=== PATIENT | male | born 1990 | race Caucasian/White ===

== ENCOUNTER 2017-07-10 22:55 | Emergency (ER) | payer BC, MEDICAID ==
[2017-07-11] MEDS ORDERED: AMOXIL 500 MG PO ONE (01:00)
[2017-07-11] MEDS ORDERED: TORAdol 30 mg Injection IM ONE (01:00)
[2017-07-11] MEDS ORDERED: TORAdol 30 mg Injection ONE (01:14)
[2017-07-11] MEDS ORDERED: AMOXIL 500 MG ONE (01:14)
[2017-07-11 01:26] LABS: Appearance CLEAR (CLEAR); Bilirubin NEGATIVE (NEGATIVE); Blood TRACE NON-HEM Ery/ul (0-5); Epithelial Cells FEW /HPF (FEW); Glucose NEGATIVE (NEGATIVE); Ketones NEGATIVE (NEGATIVE); Leukocyte Esterase NEGATIVE (NEGATIVE); Nitrite NEGATIVE (NEGATIVE); Protein,Urine Dip NEGATIVE (Negative); Urobilinogen NORMAL mg/dL (0-1); WBC 0-2 /HPF (0-5)
--- NOTE | 2017-07-11 01:36 | ERPHSYRPT ---
- History of Present Illness Time Seen by Provider: 07/11/17 00:35 Source: patient, family Patient Subjective Stated Complaint: pt c/o pain in his lower back for approx 1 month and sore throat and ear ache bilat that began around 0200 Triage Nursing Assessment: pt alert and oriented, asnwers questions approp. pt ambulatory with steady gait noted, respirations nonlabored with lungs cta. no numbness or tingling in ext per pt. bilat upper and lower ext strength equal and wnl. Physician History: CC: sore throat, earache HX: 27 y/o healthy patient with low back ache for 1 month. He works factory. He now has sore throat and earaches since yesterday. No fever. He had multipl eear infections as a child. Normal urination. No blood in urine. Timing/Duration: yesterday Allergies/Adverse Reactions: methylphenidate [From Ritalin] Allergy (Verified 07/11/17 00:36) Hx Tetanus, Diphtheria Vaccination/Date Given: Yes Hx Influenza Vaccination/Date Given: No Hx Pneumococcal Vaccination/Date Given: No Immunizations Up to Date: Yes - Review of Systems Constitutional: Fatigue, Malaise, No Fever, No Chills Eyes: No Symptoms Ears, Nose, & Throat: Throat Pain Respiratory: No Cough Abdominal/Gastrointestinal: No Nausea, No Vomiting, No Diarrhea Genitourinary Symptoms: No Dysuria, No Hematuria Musculoskeletal: Back Pain Skin: No Rash Neurological: Headache All Other Systems: Reviewed and Negative - Past Medical History Pertinent Past Medical History: No - Past Surgical History Past Surgical History: Yes Gastrointestinal: Hernia Repair Other Surgical History: tubes in ears, oral surgery - Social History Smoking Status: Current every day smoker How long have you smoked: 12 yrs Exposure to second hand smoke: Yes Drug Use: none Patient Lives Alone: No - Nursing Vital Signs Nursing Vital Signs: Initial Vital Signs Temperature 97.2 F 07/11/17 00:25 Pulse Rate 87 07/11/17 00:25 Respiratory Rate 18 07/11/17 00:25 Blood Pressure 121/81 07/11/17 00:25 O2 Sat by Pulse Oximetry 100 07/11/17 00:25 Pain Scale Pain Intensity [Lower Back] 8 Pain Intensity 8 - Physical Exam General Appearance: alert Eye Exam: PERRL/EOMI Ears, Nose, Throat Exam: normal ENT inspection, moist mucous membranes, pharyngeal erythema, other (both TM's red and scarred), No tonsillar exudate Neck Exam: normal inspection, non-tender, supple, No meningismus Respiratory Exam: normal breath sounds Cardiovascular Exam: regular rate/rhythm, normal heart sounds Gastrointestinal/Abdomen Exam: soft, No tenderness, No distention Male Genitalia Exam: normal genitalia Extremity Exam: normal inspection, normal range of motion Neurologic Exam: alert, oriented x 3, cooperative, plant anatomist II-XII nml as tested, sensation nml, No motor deficits Skin Exam: warm, dry, No rash SpO2 Interpretation: normal SpO2: 100 Oxygen Delivery: Room Air - Course Nursing assessment & vital signs reviewed: Yes Ordered Tests: Active Orders 24 hr Category Date Time Status UA W/ MICROSCOPIC Stat Lab 07/11/17 01:15 Completed Medication Summary Discontinued Medications Generic Name Dose Route Start Last Admin Trade Name Freq PRN Reason Stop Dose Admin Amoxicillin 500 mg 07/11/17 01:00 07/11/17 01:17 Amoxil 500 Mg PO 07/11/17 01:01 500 mg STAT ONE Administration Amoxicillin Confirm 07/11/17 01:14 Amoxil 500 Mg Administered 07/11/17 01:15 Dose 500 mg .ROUTE .STK-MED ONE Ketorolac Tromethamine 60 mg 07/11/17 01:00 07/11/17 01:17 Toradol 30 Mg Injection IM 07/11/17 01:01 60 mg STAT ONE Administration Ketorolac Tromethamine Confirm 07/11/17 01:14 Toradol 30 Mg Injection Administered 07/11/17 01:15 Dose 60 mg .ROUTE .STK-MED ONE Lab/Rad Data: Laboratory Results 07/11/17 Range/Units 01:15 Ur Collection Type CCMS Urine Color YELLOW (YELLOW) Urine Appearance CLEAR (CLEAR) Urine pH 6.0 (5-6) Ur Specific [place] 1.020 (1.005-1.025) Urine Protein NEGATIVE (Negative) Urine Ketones NEGATIVE (NEGATIVE) Urine Blood TRACE NON-HEM (0-5) Jude/ul Urine Nitrite NEGATIVE (NEGATIVE) Urine Bilirubin NEGATIVE (NEGATIVE) Urine Urobilinogen NORMAL (0-1) mg/dL Ur Leukocyte Esterase NEGATIVE (NEGATIVE) Urine Microscopic RBC 0-2 (0-2) /HPF Urine Microscopic WBC 0-2 (0-5) /HPF Ur Epithelial Cells FEW (FEW) /HPF Urine Culture Reflexed NO (NO) Urine Glucose NEGATIVE (NEGATIVE) mg/dL Specimen Received 07-11-17 0125 - Progress Progress Note: 07/11/17 01:36 UA negative. Will Rx amoxil. Instr given. Counseled pt/family regarding: lab results, diagnosis, need for follow-up - Departure Time of Disposition: 01:37 Departure Disposition: Home Clinical Impression: Acute pharyngitis, Otitis media Condition: Stable Critical Care Time: No Referrals: NATASHA ADORNO MD [Primary Care Provider] - Instructions: Low Back Pain, Pharyngitis/Tonsillopharyngitis -- Adult Additional Instructions: Rx amoxil. Rx ibuprofen. Plenty of oral fluids. Follow up with Dr Adorno. Prescriptions: Ibuprofen 1 tab PO Q6H PRN PRN #20 tablet PRN Reason: pain Amoxicillin [Amoxil] 1 cap PO TID #29 capsule
[2017-07-11 01:58] VITALS: BP 128/65; PULSE 76; O2SAT 99
== END 2017-07-11 01:58 | disposition home or self-care (01) ==
LOC: ED 22:55
DX: J02.9 Acute pharyngitis, unspecified (principal); H66.90 Otitis media, unspecified, unspecified ear
CPT/HCPCS: 81000; 96372; 99284; J1885; A9270-GY

== ENCOUNTER 2017-12-19 15:43 | Emergency (ER) | payer BC, OTHER ==
--- NOTE | 2017-12-19 16:06 | ERPHSYRPT ---
- History of Present Illness Time Seen by Provider: 12/19/17 16:03 Source: patient, family Exam Limitations: no limitations Patient Subjective Stated Complaint: Pt states "I feel like I am going to . I am really sick. My throat hurts, I have been coughing and I do not feel well. " Triage Nursing Assessment: Pt alert and oriented X 3, skin pwd PT ambulates with an upright steady gait, able to speak in clear full sentences. no apparent distress. Physician History: The patient is a 27-year-old male with his complaining of a sore throat and a cough for about one week. He states he feels very ill. He denies nausea , vomiting, or diarrhea. He denies fever or chills. He has been bringing up some sputum. His past medical history is unremarkable. Timing/Duration: week(s) (1), gradual onset, worse Cough Quality/Degree: moderate, productive cough Possible Cause: no prior episodes Modifying Factors: Improves With: activity Associated Symptoms: cough Allergies/Adverse Reactions: methylphenidate [From Ritalin] Allergy (Verified 07/11/17 00:36) Hx Tetanus, Diphtheria Vaccination/Date Given: Yes Hx Influenza Vaccination/Date Given: No Hx Pneumococcal Vaccination/Date Given: No Immunizations Up to Date: Yes - Review of Systems Constitutional: No Fever, No Chills Eyes: No Symptoms Ears, Nose, & Throat: Throat Pain, Hoarse Respiratory: Cough Cardiac: No Chest Pain, No Edema, No Syncope Abdominal/Gastrointestinal: No Abdominal Pain, No Nausea, No Vomiting, No Diarrhea Genitourinary Symptoms: No Dysuria Musculoskeletal: No Back Pain, No Neck Pain Skin: No Rash Neurological: No Dizziness, No Focal Weakness, No Sensory Changes Psychological: No Symptoms Endocrine: No Symptoms Hematologic/Lymphatic: No Symptoms Immunological/Allergic: No Symptoms All Other Systems: Reviewed and Negative - Past Medical History Pertinent Past Medical History: No - Past Surgical History Past Surgical History: Yes Gastrointestinal: Hernia Repair Other Surgical History: tubes in ears, oral surgery - Social History Smoking Status: Current every day smoker How long have you smoked: 12 years Exposure to second hand smoke: Yes Drug Use: none Patient Lives Alone: No - Nursing Vital Signs Nursing Vital Signs: Initial Vital Signs Temperature 98.4 F 12/19/17 15:48 Pulse Rate 78 12/19/17 15:48 Respiratory Rate 18 12/19/17 15:48 Blood Pressure 129/73 12/19/17 15:48 O2 Sat by Pulse Oximetry 99 12/19/17 15:48 Pain Scale Pain Intensity 6 - Physical Exam General Appearance: mild distress Eye Exam: PERRL/EOMI, eyes nml inspection Ears, Nose, Throat Exam: pharyngeal erythema, tonsillar exudate Neck Exam: normal inspection, non-tender, supple, full range of motion Respiratory Exam: normal breath sounds, lungs clear, No respiratory distress, No rhonchi, No wheezing Cardiovascular Exam: regular rate/rhythm, normal heart sounds Gastrointestinal/Abdomen Exam: soft, No tenderness Rectal Exam: not done Back Exam: normal inspection, No CVA tenderness, No vertebral tenderness Extremity Exam: normal inspection, normal range of motion Neurologic Exam: alert, oriented x 3, cooperative, normal mood/affect, sensation nml, No motor deficits Skin Exam: normal color Lymphatic Exam: No adenopathy SpO2 Interpretation: normal SpO2: 99 Oxygen Delivery: Room Air - Radiology Exams Chest X-ray Interpretation: Reviewed by me, Teleradiologist Report, Negative (per Dr Jorge.) Ordered Tests: Active Orders 24 hr Category Date Time Status CHEST 2 VIEWS (PA AND LAT) Stat Exams 12/19/17 16:06 Completed CULTURE, THROAT Stat Lab 12/19/17 16:06 Received STREP SCREEN-BETA A Stat Lab 12/19/17 16:06 Completed Medication Summary Discontinued Medications Generic Name Dose Route Start Last Admin Trade Name Reji PRN Reason Stop Dose Admin Ketorolac Tromethamine 60 mg 12/19/17 16:06 12/19/17 16:25 Toradol 30 Mg Injection IM 12/19/17 16:07 60 mg STAT ONE Administration Ketorolac Tromethamine Confirm 12/19/17 16:24 Toradol 30 Mg Injection Administered 12/19/17 16:25 Dose 60 mg .ROUTE .STK-MED ONE Lab/Rad Data: Laboratory Results 12/19/17 Range/Units 16:06 Streptococcus Screen NEGATIVE (Negative) - Progress Progress: improved Air Movement: good Blood Culture(s) Obtained: No Antibiotics given: No Counseled pt/family regarding: lab results, diagnosis, rad results - Departure Time of Disposition: 17:13 Departure Disposition: Home Clinical Impression: Bronchitis Condition: Stable Critical Care Time: No Additional Instructions: You have bronchitis. The rapid strep test was negative. Your chest x-ray was negative. You were given Toradol 60 mg by IM in the ER. Take azithromycin 500 mg today and then 250 mg every day for the next 4 days. Take Tylenol 1000 mg and ibuprofen 800 mg every 8 hours as needed. Follow-up with your family doctor in 2-3 days if no improvement. Prescriptions: Azithromycin 250 mg [Zithromax 250 MG TABLET] 250 mg PO ZPACK #6 tablet
[2017-12-19] MEDS ORDERED: TORAdol 30 mg Injection ONE (16:24)
[2017-12-19] MEDS: TORAdol 30 mg Injection IM ONE (16:25)
--- NOTE | 2017-12-19 16:45 | XRAY ---
Indication: Cough and sore throat. Comparison: None PA/lateral chest demonstrates normal heart, lungs, and bony thorax.
[2017-12-19 17:03] VITALS: BP 117/78; PULSE 68
[2017-12-19 17:16] VITALS: O2SAT 99
== END 2017-12-19 17:18 | disposition home or self-care (01) ==
LOC: ED 15:43
DX: J40 Bronchitis, not specified as acute or chronic (principal); Z72.0 Tobacco use
CPT/HCPCS: 71046; 87070; 87430; 96372; 99284; J1885

== ENCOUNTER 2018-04-08 21:10 | Emergency (ER) | payer OTHER | END 2018-04-08 22:36 | disposition left against medical advice (07) | LOC: ED 21:10 | DX: Z53.21 Procedure and treatment not carried out due to patient leaving prior to being seen by health care provider (principal) ==

== ENCOUNTER 2018-04-12 01:13 | Emergency (ER) | payer OTHER ==
[2018-04-12] MEDS ORDERED: NORCO 5/325 MG PO ONE (01:24)
[2018-04-12] MEDS ORDERED: Nicoderm CQ 21 MG TOP ONE (01:42)
--- NOTE | 2018-04-12 01:42 | ERPHSYRPT ---
- History of Present Illness Time Seen by Provider: 04/12/18 01:21 Source: patient Exam Limitations: no limitations Patient Subjective Stated Complaint: pt states that he has been depressed because his left him recently. states he has been having suicidal thoughts and has a plan to lay on the railroad [place] to end it all. states he sold all of his firearms today so he wouldnt ue them on himself. states he father hung himself and his grandfather shot himself in the head Triage Nursing Assessment: pt alert and oriented, cooperative at this time. pt arrive with law enforcement. cooperative at this time. states he has been drinking tonight. pt ambulatory with steady gait noted. respirations nonlabored with lungs cta. Physician History: Pt called police this morning stating that he has been suicidal for weeks. He denies taking anything or injuring himself, denies other complaints, no headaches, confusion, chest pain, fever or vomiting, only left ear fullness. He states he has been suicidal since his left him. Apparently he has gotten rid of all his guns. Timing/Duration: week(s) (2-3) Severity of Symptoms-Max: severe Severity of Symptoms-Current: severe Context related to: spouse Suicidal thoughts: other (ideas) Associated Symptoms: denies symptoms Previous symptoms: same symptoms as today Allergies/Adverse Reactions: methylphenidate [From Ritalin] Allergy (Verified 04/12/18 01:33) Home Medications: No Reportable Medications [No Reported Medications] 04/12/18 [History] Hx Tetanus, Diphtheria Vaccination/Date Given: Yes Hx Influenza Vaccination/Date Given: No Hx Pneumococcal Vaccination/Date Given: No Immunizations Up to Date: Yes - Past Medical History Pertinent Past Medical History: No Psycho-Social History: Attention Deficit Disorder - Past Surgical History Past Surgical History: Yes Gastrointestinal: Hernia Repair Other Surgical History: tubes in ears, oral surgery - Social History Smoking Status: Current every day smoker How long have you smoked: 12 years Exposure to second hand smoke: Yes Drug Use: none Patient Lives Alone: No - Review of Systems Constitutional: No Symptoms Ears, Nose, & Throat: Ear Pain Psychological: Alcohol Abuse, Anxiety, Depression, Suicidal Ideations All Other Systems: Reviewed and Negative - Nursing Vital Signs Nursing Vital Signs: Initial Vital Signs Temperature 98.0 F 04/12/18 01:14 Pulse Rate 106 H 04/12/18 01:14 Respiratory Rate 18 04/12/18 01:14 Blood Pressure 141/92 04/12/18 01:14 O2 Sat by Pulse Oximetry 96 04/12/18 01:14 Pain Scale Pain Intensity 0 - Physical Exam General Appearance: no apparent distress Eyes, Ears, Nose, Throat Exam: normal ENT inspection, TMs normal, pharynx normal , moist mucous membranes Neck Exam: normal inspection, non-tender, supple, No JVD Respiratory Exam: normal breath sounds, lungs clear, airway intact, No chest tenderness Cardiovascular Exam: regular rate/rhythm, normal heart sounds, normal peripheral pulses, No murmur Gastrointestinal/Abdominal Exam: soft, normal bowel sounds, No tenderness, No distention, No mass, No guarding, No ecchymosis Neurological Exam: alert, normal mood/affect, calm, oriented x 3 Appearance: appropriate appearance Behavior/Eye Contact/Speech: alert & cooperative Thoughts/Hallucinations: no apparent hallucination Skin Exam: normal color, warm, dry, No rash SpO2 Interpretation: normal SpO2: 96 Oxygen Delivery: Room Air - Course Nursing assessment & vital signs reviewed: Yes EKG Interpreted by Me: RATE (102/min), Sinus Tach, NORMAL AXIS, Non-specific ST Changes Ordered Tests: Active Orders 24 hr Category Date Time Status EKG-ER Only STAT Care 04/12/18 01:34 Active ACETAMINOPHEN Stat Lab 04/12/18 01:45 Completed CBC W DIFF Stat Lab 04/12/18 01:45 Completed CMP Stat Lab 04/12/18 01:45 Completed ETHYL ALCOHOL Stat Lab 04/12/18 01:45 Completed SALICYLATE Stat Lab 04/12/18 01:45 Completed TSH [TSH, 3RD Generation] Stat Lab 04/12/18 01:45 Completed UA W/RFX UR CULTURE Stat Lab 04/12/18 02:00 Completed Urine Triage Profile Stat Lab 04/12/18 02:00 Completed Medication Summary Discontinued Medications Generic Name Dose Route Start Last Admin Trade Name Freq PRN Reason Stop Dose Admin Hydrocodone Bitart/Acetaminophen 1 tab 04/12/18 01:24 04/12/18 02:03 [place] 5/325 Mg PO 04/12/18 01:25 Not Given STAT ONE Nicotine 21 mg 04/12/18 01:42 04/12/18 02:06 Nicoderm Cq 21 Mg TOP 04/12/18 01:43 21 mg STAT ONE Administration Lab/Rad Data: Laboratory Result Diagrams 04/12/18 01:45 04/12/18 01:45 Laboratory Results 04/12/18 04/12/18 04/12/18 Range/Units 02:00 02:00 01:45 WBC (4.0-10.5) K/mm3 RBC (4.1-5.6) M/mm3 Hgb (12.5-18.0) gm/dl Hct (42-50) % MCV (78-100) fl MCH (26-32) pg MCHC (32-36) g/dl RDW (11.5-14.0) % Plt Count (150-450) K/mm3 MPV (6-9.5) fl Gran % (36.0-66.0) % Eos # (Auto) (0-0.5) Absolute Lymphs (auto) (1.0-4.6) Absolute Monos (auto) (0.0-1.3) Lymphocytes % (24.0-44.0) % Monocytes % (0.0-12.0) % Eosinophils % (0.00-5.0) % Basophils % (0.0-0.4) % Absolute Granulocytes (1.4-6.9) Basophils # (0-0.4) Sodium (137-145) mmol/L Potassium (3.5-5.1) mmol/L Chloride (98-107) mmol/L Carbon Dioxide (22-30) mmol/L Anion Gap (5-15) MEQ/L BUN (9-20) mg/dL Creatinine (0.66-1.25) mg/dL Estimated GFR ML/MIN Glucose (74-106) mg/dL Calcium (8.4-10.2) mg/dL Total Bilirubin (0.2-1.3) mg/dL AST (17-59) U/L ALT (0-50) U/L Alkaline Phosphatase (38-126) U/L Serum Total Protein (6.3-8.2) g/dL Albumin (3.5-5.0) g/dL TSH 3rd Generation 1.000 (0.47-4.68) mIU/L Urine Color YELLOW (YELLOW) Urine Appearance CLEAR (CLEAR) Urine pH 5.0 (5-6) Ur Specific [place] 1.019 (1.005-1.025) Urine Protein NEGATIVE (Negative) Urine Ketones NEGATIVE (NEGATIVE) Urine Blood NEGATIVE (0-5) Jude/ul Urine Nitrite NEGATIVE (NEGATIVE) Urine Bilirubin NEGATIVE (NEGATIVE) Urine Urobilinogen 2 (0-1) mg/dL Ur Leukocyte Esterase NEGATIVE (NEGATIVE) Urine WBC (Auto) 0-2 (0-5) /HPF Urine RBC (Auto) 0-2 (0-2) /HPF U Epithel Cells (Auto) RARE (FEW) /HPF Urine Mucus (Auto) SLIGHT (NEGATIVE) /HPF Urine Culture Reflexed NO (NO) Urine Glucose NEGATIVE (NEGATIVE) mg/dL Salicylates (2-20) mg/dL Urine Opiates Level NEGATIVE (NEGATIVE) Ur Methadone NEGATIVE (NEGATIVE) Acetaminophen (10-30) ug/ml Urine Barbiturates NEGATIVE (NEGATIVE) Ur Phencyclidine (PCP) NEGATIVE (NEGATIVE) Urine Amphetamine NEGATIVE (NEGATIVE) U Benzodiazepine Level NEGATIVE (NEGATIVE) Urine Cocaine NEGATIVE (NEGATIVE) Urine Marijuana (THC) NEGATIVE (NEGATIVE) Ethyl Alcohol (0-10) mg/dL 04/12/18 04/12/18 Range/Units 01:45 01:45 WBC 8.9 (4.0-10.5) K/mm3 RBC 5.28 (4.1-5.6) M/mm3 Hgb 16.4 (12.5-18.0) gm/dl Hct 46.2 (42-50) % MCV 87.5 (78-100) fl MCH 31.1 (26-32) pg MCHC 35.5 (32-36) g/dl RDW 13.4 (11.5-14.0) % Plt Count 224 (150-450) K/mm3 MPV 11.0 H (6-9.5) fl Gran % 53.2 (36.0-66.0) % Eos # (Auto) 0.16 (0-0.5) Absolute Lymphs (auto) 3.12 (1.0-4.6) Absolute Monos (auto) 0.85 (0.0-1.3) Lymphocytes % 34.9 (24.0-44.0) % Monocytes % 9.5 (0.0-12.0) % Eosinophils % 1.8 (0.00-5.0) % Basophils % 0.6 (0.0-0.4) % Absolute Granulocytes 4.75 (1.4-6.9) Basophils # 0.05 (0-0.4) Sodium 143 (137-145) mmol/L Potassium 3.4 L (3.5-5.1) mmol/L Chloride 106 (98-107) mmol/L Carbon Dioxide 23 (22-30) mmol/L Anion Gap 16.8 H (5-15) MEQ/L BUN 11 (9-20) mg/dL Creatinine 0.99 (0.66-1.25) mg/dL Estimated GFR > 60.0 ML/MIN Glucose 116 H (74-106) mg/dL Calcium 9.1 (8.4-10.2) mg/dL Total Bilirubin 0.40 (0.2-1.3) mg/dL AST 25 (17-59) U/L ALT 21 (0-50) U/L Alkaline Phosphatase 62 (38-126) U/L Serum Total Protein 7.4 (6.3-8.2) g/dL Albumin 4.9 (3.5-5.0) g/dL TSH 3rd Generation (0.47-4.68) mIU/L Urine Color (YELLOW) Urine Appearance (CLEAR) Urine pH (5-6) Ur Specific [place] (1.005-1.025) Urine Protein (Negative) Urine Ketones (NEGATIVE) Urine Blood (0-5) Jude/ul Urine Nitrite (NEGATIVE) Urine Bilirubin (NEGATIVE) Urine Urobilinogen (0-1) mg/dL Ur Leukocyte Esterase (NEGATIVE) Urine WBC (Auto) (0-5) /HPF Urine RBC (Auto) (0-2) /HPF U Epithel Cells (Auto) (FEW) /HPF Urine Mucus (Auto) (NEGATIVE) /HPF Urine Culture Reflexed (NO) Urine Glucose (NEGATIVE) mg/dL Salicylates < 1.0 L (2-20) mg/dL Urine Opiates Level (NEGATIVE) Ur Methadone (NEGATIVE) Acetaminophen < 10 L (10-30) ug/ml Urine Barbiturates (NEGATIVE) Ur Phencyclidine (PCP) (NEGATIVE) Urine Amphetamine (NEGATIVE) U Benzodiazepine Level (NEGATIVE) Urine Cocaine (NEGATIVE) Urine Marijuana (THC) (NEGATIVE) Ethyl Alcohol 144 H (0-10) mg/dL - Progress Progress: unchanged Progress Note: 04/12/18 02:47 Patient has been medically stable for Psychiatric evaluation. He has been calm, not agitated or lethargic. 04/12/18 03:19 Counseled pt/family regarding: lab results, diagnosis, need for follow-up - Departure Time of Disposition: 03:18 Departure Disposition: Transfer (to Psychiatry, accepting physician : Dr Ventura) Clinical Impression: Suicidal ideation Alcohol intoxication Qualifiers: Complication of substance-induced condition: uncomplicated Qualified Code(s): F10.920 - Alcohol use, unspecified with intoxication, uncomplicated Condition: Stable Critical Care Time: No Referrals: DENICE CUTLER [Primary Care Provider] -
[2018-04-12 01:57] LABS: BASOPHIL % 0.6 % (0.0-0.4); Basophil (Absolute #) 0.05 (0-0.4); Eosinophil % 1.8 % (0.00-5.0); Eosinophil (Absolute #) 0.16 (0-0.5); Granulocyte Absolute (ANC) 4.75 (1.4-6.9); Granulocytes % 53.2 % (36.0-66.0); Hematocrit 46.2 % (42-50); Hemoglobin 16.4 gm/dl (12.5-18.0); Lymphocyte (Absolute #) 3.12 (1.0-4.6); Lymphocytes % 34.9 % (24.0-44.0); Mean Cell Volume 87.5 fl (78-100); Mean Corpuscular Hemoglobin 31.1 pg (26-32); Mean Corpuscular Hgb Concent. 35.5 g/dl (32-36); Monocyte (Absolute #) 0.85 (0.0-1.3); Monocytes % 9.5 % (0.0-12.0); Platelet Count 224 K/mm3 (150-450); Red Blood Count 5.28 M/mm3 (4.1-5.6); Red Cell Distribution Width 13.4 % (11.5-14.0); White Blood Count 8.9 K/mm3 (4.0-10.5)
[2018-04-12 02:10] LABS: ALBUMIN 4.9 g/dL (3.5-5.0); ALKALINE PHOSPHATASE 62 U/L (38-126); ANION GAP 16.8 MEQ/L (5-15); BLOOD UREA NITROGEN 11 mg/dL (9-20); CHLORIDE 106 mmol/L (98-107); Calcium 9.1 mg/dL (8.4-10.2); Carbon Dioxide 23 mmol/L (22-30); Creatinine 1 0.99 mg/dL (0.66-1.25); ETHYL ALCOHOL 144 mg/dL (0-10); Glucose 116 mg/dL (74-106); Potassium 3.4 mmol/L (3.5-5.1); SGOT/AST 25 U/L (17-59); SGPT/ALT 21 U/L (0-50); SODIUM 143 mmol/L (137-145); Total Protein 7.4 g/dL (6.3-8.2)
[2018-04-12 02:13] LABS: ACETAMINOPHEN < 10 ug/ml (10-30); SALICYLATE < 1.0 mg/dL (2-20)
[2018-04-12 02:26] LABS: Appearance CLEAR (CLEAR); Bilirubin NEGATIVE (NEGATIVE); Blood NEGATIVE Ery/ul (0-5); Glucose NEGATIVE (NEGATIVE); Ketones NEGATIVE (NEGATIVE); Leukocyte Esterase NEGATIVE (NEGATIVE); Nitrite NEGATIVE (NEGATIVE); Protein,Urine Dip NEGATIVE (Negative); Specific Gravity 1.019 (1.005-1.025); Urobilinogen 2 mg/dL (0-1)
[2018-04-12 02:28] LABS: Amphetamine,Urine NEGATIVE (NEGATIVE); Barbiturate,Urine NEGATIVE (NEGATIVE); Benzodiazepine,Urine NEGATIVE (NEGATIVE); Cocaine,Urine NEGATIVE (NEGATIVE); Methadone,Urine NEGATIVE (NEGATIVE); Opiate,Urine NEGATIVE (NEGATIVE); PCP,Urine NEGATIVE (NEGATIVE); THC,Urine NEGATIVE (NEGATIVE)
[2018-04-12 03:29] VITALS: BP 121/84; PULSE 78; O2SAT 98
== END 2018-04-12 04:04 | disposition short-term general hospital (02) ==
LOC: ED 01:13
DX: R45.851 Suicidal ideations (principal); F10.920 Alcohol use, unspecified with intoxication, uncomplicated
CPT/HCPCS: 36415; 80053; 80307; 81001; 84443; 85025; 93005; 99285; G0481; A9270-GY; G0480

== ENCOUNTER 2018-12-19 18:45 | Emergency (ER) | payer MEDICAID, OTHER ==
--- NOTE | 2018-12-19 18:51 | ERPHSYRPT ---
- History of Present Illness Time Seen by Provider: 12/19/18 18:51 Source: patient, family Exam Limitations: no limitations Physician History: 28 y/o white male with 2 weeks of low back pain. no injury. pt has a h/o low back pain. pain worsening. pt denies urinary sx. pt does complain of nausea over last 2 days. no abd pain. no vomiting or diarrhea. Timing/Duration: week(s) (2 weeks for back pain) Method of Injury: unknown Back Pain Location: lumbar spine Severity of Pain-Max: mild Severity of Pain-Current: mild Modifying Factors: Improves With: movement Associated Symptoms: nausea, No urinary incontinence, No loss of bowel control, No constipation, No vomiting, No problems urinating Previous symptoms: same symptoms as today Allergies/Adverse Reactions: methylphenidate [From Ritalin] Allergy (Verified 04/12/18 01:33) Hx Tetanus, Diphtheria Vaccination/Date Given: Yes Hx Influenza Vaccination/Date Given: No Hx Pneumococcal Vaccination/Date Given: No - Review of Systems Constitutional: No Symptoms Eyes: No Symptoms Ears, Nose, & Throat: No Symptoms Respiratory: No Symptoms Cardiac: No Symptoms Abdominal/Gastrointestinal: Nausea, No Abdominal Pain, No Vomiting, No Diarrhea Genitourinary Symptoms: No Symptoms Musculoskeletal: Back Pain, No Fall, No Injury Skin: No Symptoms Neurological: No Symptoms Psychological: No Symptoms Endocrine: No Symptoms Hematologic/Lymphatic: No Symptoms Immunological/Allergic: No Symptoms All Other Systems: Reviewed and Negative - Past Medical History Pertinent Past Medical History: No Neurological History: No Pertinent History ENT History: No Pertinent History Cardiac History: No Pertinent History Respiratory History: No Pertinent History Endocrine Medical History: No Pertinent History Musculoskeletal History: No Pertinent History GI Medical History: No Pertinent History History: No Pertinent History Psycho-Social History: Attention Deficit Disorder Male Reproductive Disorders: No Pertinent History - Past Surgical History Past Surgical History: Yes Gastrointestinal: Hernia Repair Other Surgical History: tubes in ears, oral surgery - Social History Smoking Status: Current every day smoker How long have you smoked: 12 years Exposure to second hand smoke: Yes Drug Use: none Patient Lives Alone: No - Nursing Vital Signs Nursing Vital Signs: Initial Vital Signs Temperature 97.9 F 12/19/18 19:29 Pulse Rate 93 H 12/19/18 19:29 Respiratory Rate 16 12/19/18 19:29 Blood Pressure 135/85 12/19/18 19:29 O2 Sat by Pulse Oximetry 98 12/19/18 19:29 Pain Scale Pain Intensity [Lower Back] 6 Pain Intensity 6 - Physical Exam General Appearance: no apparent distress, alert, anxiety Eye Exam: PERRL/EOMI, eyes nml inspection Ears, Nose, Throat Exam: normal ENT inspection, moist mucous membranes Neck Exam: normal inspection, non-tender, supple, full range of motion Respiratory Exam: normal breath sounds, lungs clear, airway intact, No chest tenderness, No respiratory distress Gastrointestinal Exam: soft, normal bowel sounds, No tenderness Rectal Exam: not done Back Exam: normal inspection, normal range of motion, muscle spasm, No CVA tenderness, No vertebral tenderness Extremity Exam: normal inspection, normal range of motion, pelvis stable Neurologic Exam: alert, oriented x 3, cooperative, gold layer II-XII nml as tested Skin Exam: normal color, warm, dry Lymphatic Exam: No adenopathy SpO2 Interpretation: normal Ordered Tests: Active Orders 24 hr Category Date Time Status UA W/RFX UR CULTURE Stat Lab 12/19/18 21:00 Completed Lab/Rad Data: Laboratory Results 12/19/18 Range/Units 21:00 Urine Color YELLOW (YELLOW) Urine Appearance CLEAR (CLEAR) Urine pH 6.0 (5-6) Ur Specific [place] 1.020 (1.005-1.025) Urine Protein NEGATIVE (Negative) Urine Ketones NEGATIVE (NEGATIVE) Urine Blood NEGATIVE (0-5) Jude/ul Urine Nitrite NEGATIVE (NEGATIVE) Urine Bilirubin NEGATIVE (NEGATIVE) Urine Urobilinogen 4 (0-1) mg/dL Ur Leukocyte Esterase NEGATIVE (NEGATIVE) Urine WBC (Auto) 0-2 (0-5) /HPF Urine RBC (Auto) NONE (0-2) /HPF U Epithel Cells (Auto) NONE (FEW) /HPF Urine Bacteria (Auto) NONE (NEGATIVE) /HPF Urine Mucus (Auto) SLIGHT (NEGATIVE) /HPF Urine Culture Reflexed NO (NO) Urine Glucose NEGATIVE (NEGATIVE) mg/dL - Progress Progress: improved, pain not gone completely, re-examined Counseled pt/family regarding: lab results, diagnosis, need for follow-up - Departure Departure Disposition: Home Clinical Impression: Back pain Condition: Stable Critical Care Time: No Referrals: DENICE CUTLER [Primary Care Provider] - Additional Instructions: follow up with primary doctor for further management Forms: Work/School Release Form Prescriptions: Cyclobenzaprine HCl 10 mg [Cyclobenzaprine 10 MG] 10 mg PO TID #10 tablet Naproxen 500 mg [Naprosyn 500 MG] 500 mg PO BID #10 tablet
[2018-12-19 19:30] VITALS: O2SAT 98
[2018-12-19 21:12] LABS: Appearance CLEAR (CLEAR); Bilirubin NEGATIVE (NEGATIVE); Blood NEGATIVE Ery/ul (0-5); Glucose NEGATIVE (NEGATIVE); Ketones NEGATIVE (NEGATIVE); Leukocyte Esterase NEGATIVE (NEGATIVE); Mucus SLIGHT /HPF (NEGATIVE); Nitrite NEGATIVE (NEGATIVE); Protein,Urine Dip NEGATIVE (Negative); Urobilinogen 4 mg/dL (0-1); WBC 0-2 /HPF (0-5)
[2018-12-19] MEDS ORDERED: NORCO 5/325 MG PO ONE (21:20)
[2018-12-19] MEDS ORDERED: Cyclobenzaprine 10 MG PO ONE (21:20)
[2018-12-19] MEDS ORDERED: DELTASONE 10 MG PO ONE (21:20)
[2018-12-19] MEDS ORDERED: NORCO 5/325 MG ONE (21:24)
[2018-12-19] MEDS ORDERED: Cyclobenzaprine 10 MG ONE (21:24)
[2018-12-19] MEDS ORDERED: DELTASONE 20 MG ONE (21:32)
[2018-12-19 21:45] VITALS: BP 147/85; PULSE 76
== END 2018-12-19 21:46 | disposition home or self-care (01) ==
LOC: ED 18:45
DX: M54.5 Low back pain (principal); R11.0 Nausea; F17.200 Nicotine dependence, unspecified, uncomplicated
CPT/HCPCS: 81001; 99284; A9270-GY

== ENCOUNTER 2019-01-10 23:01 | Emergency (ER) | payer MEDICAID ==
[2019-01-10 23:13] VITALS: O2SAT 100
--- NOTE | 2019-01-10 23:22 | ERPHSYRPT ---
- History of Present Illness Time Seen by Provider: 01/10/19 23:16 Source: patient Exam Limitations: no limitations Patient Subjective Stated Complaint: pt states hehas a sore throat and cough since yesterday. denies fever at home Triage Nursing Assessment: pt alert and oreinted, answers questions approp. pt ambulatory ith steady gait noted. respirations nonlabored with lungs cta. redness noted in throat. no exudate. Physician History: 28-year-old white male arrives with complaint of sore throat and cough symptoms since yesterday has not had any fevers he states he felt initially like he was having some type of allergic reaction. He is not had a productive cough no nausea no vomiting. Past medical history positive for ADD, fractured toes and fractured nose. Past surgical history includes myringotomy tubes oral surgery. Social history positive for tobacco use denies alcohol or illicit drug use. Timing/Duration: yesterday Severity: moderate Modifying Factors: Improves With: nothing Associated Symptoms: diaphoresis, other (sore throat), No nausea, No vomiting, No abdominal pain, No shortness of breath, No heartburn, No cough, No chills, No chest pain, No fever, No headaches, No loss of appetite, No malaise, No rash , No syncope, No seizure, No weakness Allergies/Adverse Reactions: methylphenidate [From Ritalin] Allergy (Verified 01/10/19 23:13) Hx Tetanus, Diphtheria Vaccination/Date Given: Yes Hx Influenza Vaccination/Date Given: No Hx Pneumococcal Vaccination/Date Given: No Immunizations Up to Date: Yes - Review of Systems Constitutional: No Fever, No Chills Eyes: No Symptoms Ears, Nose, & Throat: Throat Pain, No Ear Pain, No Ear Discharge, No Hearing Changes, No Tinnitus, No Nose Pain, No Nose Congestion, No Nose Discharge, No Sinus Drainage, No Epistaxis, No Mouth Pain, No Mouth Swelling, No Loose Teeth, No Throat Swelling, No Hoarse, No Painful Swallowing, No Snoring, No Stridor Respiratory: Cough, No Cyanosis, No Dyspnea, No Dyspnea on Exertion (MELTON), No Stridor, No Wheezing Cardiac: No Chest Pain, No Edema, No Syncope Abdominal/Gastrointestinal: No Abdominal Pain, No Nausea, No Vomiting, No Diarrhea Genitourinary Symptoms: No Dysuria Musculoskeletal: No Back Pain, No Neck Pain Skin: No Rash Neurological: No Dizziness, No Focal Weakness, No Sensory Changes Psychological: No Symptoms Endocrine: No Symptoms All Other Systems: Reviewed and Negative - Past Medical History Pertinent Past Medical History: No Neurological History: No Pertinent History ENT History: No Pertinent History Cardiac History: No Pertinent History Respiratory History: No Pertinent History Endocrine Medical History: No Pertinent History Musculoskeletal History: No Pertinent History GI Medical History: No Pertinent History History: No Pertinent History Psycho-Social History: Attention Deficit Disorder Male Reproductive Disorders: No Pertinent History Other Medical History: fx toe and nose - Past Surgical History Past Surgical History: Yes Neuro Surgical History: No Pertinent History Cardiac: No Pertinent History Respiratory: No Pertinent History Gastrointestinal: Hernia Repair Genitourinary: No Pertinent History Musculoskeletal: No Pertinent History Male Surgical History: No Pertinent History Other Surgical History: tubes in ears, oral surgery - Social History Smoking Status: Current every day smoker How long have you smoked: 12 years Exposure to second hand smoke: Yes Drug Use: none Patient Lives Alone: No - Nursing Vital Signs Nursing Vital Signs: Initial Vital Signs Temperature 98.1 F 01/10/19 23:06 Pulse Rate 76 01/10/19 23:06 Respiratory Rate 16 01/10/19 23:06 Blood Pressure 139/86 01/10/19 23:06 O2 Sat by Pulse Oximetry 100 01/10/19 23:06 Pain Scale Pain Intensity 6 - Physical Exam General Appearance: mild distress, alert Eye Exam: PERRL/EOMI, eyes nml inspection, other (fundi unremarkable) Ears, Nose, Throat Exam: TMs normal, moist mucous membranes, No pharynx normal ( Throat erythematous), No dry mucous membranes, No TM abnormal (R), No TM abnormal (L), No pharyngeal erythema, No tonsillar exudate Neck Exam: normal inspection, non-tender, supple, full range of motion Respiratory Exam: normal breath sounds, lungs clear, No respiratory distress Cardiovascular Exam: regular rate/rhythm, normal heart sounds, normal peripheral pulses, capillary refill <2 sec Gastrointestinal/Abdomen Exam: soft, normal bowel sounds, No tenderness, No mass Back Exam: normal inspection, normal range of motion, No CVA tenderness, No vertebral tenderness Extremity Exam: normal inspection, normal range of motion, pelvis stable Neurologic Exam: alert, oriented x 3, cooperative, 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, normal mood/affect, nml cerebellar function, nml station & gait, sensation nml, No motor deficits Skin Exam: normal color, warm, dry, No rash SpO2 Interpretation: normal (100%) SpO2: 100 - Course Nursing assessment & vital signs reviewed: Yes Ordered Tests: Medication Summary Discontinued Medications Generic Name Dose Route Start Last Admin Trade Name Reji PRN Reason Stop Dose Admin Prednisone 40 mg 01/11/19 00:00 Deltasone 20 Mg PO 01/11/19 00:01 STAT ONE Lab/Rad Data: Laboratory Results 01/10/19 Range/Units 23:35 Group A Strep Antibody NEGATIVE (NEGATIVE) - Progress Progress: improved Progress Note: 01/11/19 00:01 Patient's strep is negative. Patient is afebrille Lungs are clear. Vitals are stable. Will give the patient prednisone 40 mg orally for 5 days 01/11/19 00:05 - Departure Departure Disposition: Home Clinical Impression: Viral pharyngitis, Throat pain, Bronchitis Condition: Fair Critical Care Time: No Referrals: DENICE CUTLER [Primary Care Provider] - Instructions: Sore Throat, Adult (DC) Additional Instructions: Return home. Plenty of fluids. Stop smoking. Prednisone as prescribed. Tylenol every 4 hours as needed for pain. Followup with your family if symptoms are worse, no better in 48-72 hours or persist longer than one week. Return for acute distress or for severe symptoms. Prescriptions: Prednisone 20 mg [Deltasone 20 mg] 40 mg PO DAILY #10 tablet
[2019-01-11] MEDS ORDERED: DELTASONE 20 MG PO ONE
[2019-01-11] MEDS ORDERED: DELTASONE 20 MG ONE (00:04)
[2019-01-11 00:09] VITALS: BP 139/69; PULSE 78
== END 2019-01-11 00:18 | disposition home or self-care (01) ==
LOC: ED 23:01
DX: B08.5 Enteroviral vesicular pharyngitis (principal); R07.0 Pain in throat; J40 Bronchitis, not specified as acute or chronic
CPT/HCPCS: 87651; 99283; A9270-GY

== ENCOUNTER 2019-09-29 16:03 | Emergency (ER) | payer SELFPAY ==
--- NOTE | 2019-09-29 16:45 | ERPHSYRPT ---
- History of Present Illness Time Seen by Provider: 09/29/19 16:44 Source: patient Exam Limitations: no limitations Patient Subjective Stated Complaint: pt reports cough, sore throat, headache beginning yesterday. 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 Triage Nursing Assessment: pt is aox3, pupils perrl, afebrile, resps easy and non labored, lung sounds are clear throughout all lind, cap refill < 3 seconds , radial pulses strong and equal, pt skin pink warm dry. Physician History: pt reports cough, sore throat, headache beginning yesterday. 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 Timing/Duration: gradual onset, yesterday Prearrival Treatment: no prearrival treatment Associated Symptoms: headache, nasal congestion/drainage, sore throat Allergies/Adverse Reactions: methylphenidate [From Ritalin] Allergy (Verified 09/29/19 16:24) Hx Tetanus, Diphtheria Vaccination/Date Given: Yes Hx Influenza Vaccination/Date Given: No Hx Pneumococcal Vaccination/Date Given: No Immunizations Up to Date: Yes Travel Risk - International Travel Have you traveled outside of the country in past 3 weeks: No Have you or anyone close to you been diagnosed with or: No Do your reside in a community with a known COVID-19 case?: No - Coronavirus Screening Has patient experienced Coronavirus symptoms: No - Review of Systems Constitutional: No Fever, No Chills Eyes: No Symptoms Ears, Nose, & Throat: No Symptoms, Throat Pain Respiratory: No Cough, No Dyspnea Cardiac: No Chest Pain, No Edema, No Syncope Abdominal/Gastrointestinal: No Abdominal Pain, No Nausea, No Vomiting, No Diarrhea Genitourinary Symptoms: No Dysuria Musculoskeletal: No Back Pain, No Neck Pain Skin: No Rash Neurological: No Dizziness, No Focal Weakness, No Sensory Changes Psychological: No Symptoms Endocrine: No Symptoms All Other Systems: Reviewed and Negative - Past Medical History Pertinent Past Medical History: No Neurological History: No Pertinent History ENT History: No Pertinent History Cardiac History: No Pertinent History Respiratory History: No Pertinent History Endocrine Medical History: No Pertinent History Musculoskeletal History: No Pertinent History GI Medical History: No Pertinent History History: No Pertinent History Psycho-Social History: Attention Deficit Disorder Male Reproductive Disorders: No Pertinent History Other Medical History: fx toe and nose - Past Surgical History Past Surgical History: Yes Neuro Surgical History: No Pertinent History Cardiac: No Pertinent History Respiratory: No Pertinent History Gastrointestinal: Hernia Repair Genitourinary: No Pertinent History Musculoskeletal: No Pertinent History Male Surgical History: No Pertinent History Other Surgical History: tubes in ears, oral surgery - Social History Smoking Status: Current every day smoker How long have you smoked: 12 years Exposure to second hand smoke: Yes Drug Use: none Patient Lives Alone: No - Nursing Vital Signs Nursing Vital Signs: Initial Vital Signs Temperature 98.5 F 09/29/19 16:10 Pulse Rate 86 09/29/19 16:10 Respiratory Rate 20 09/29/19 16:10 Blood Pressure 145/91 09/29/19 16:10 O2 Sat by Pulse Oximetry 99 09/29/19 16:10 Pain Scale Pain Intensity 0 - Physical Exam General Appearance: no apparent distress, alert Eye Exam: bilateral eye: PERRL, EOMI Nasal Exam: normal inspection Throat Exam: pharynx normal, moist mucus membranes, pharynx swelling, No tonsillar exudate Neck Exam: supple Cardiovascular/Respiratory Exam: normal breath sounds, regular rate/rhythm Abdominal Exam: non-tender, soft Neurologic Exam: alert, oriented x 3, sensation nml, No motor deficits Skin Exam: normal color, warm, dry SpO2: 99 - Course Nursing assessment & vital signs reviewed: Yes Lab/Rad Data: Laboratory Results 09/29/19 Range/Units 17:11 Influenza Type A Ag NEGATIVE (NEGATIVE) Influenza Type B Ag NEGATIVE (NEGATIVE) RSV (PCR) NEGATIVE (Negative) Group A Strep Antibody NEGATIVE (NEGATIVE) - Progress Progress: unchanged Counseled pt/family regarding: lab results, diagnosis, need for follow-up - Departure Departure Disposition: Home Clinical Impression: Viral pharyngitis Condition: Stable Critical Care Time: No Referrals: DENICE CUTLER [Primary Care Provider] - Instructions: Sore Throat, Adult (DC), Viral Pharyngitis (DC) Additional Instructions: Discharge/Care Plan JIM RODAS was seen on 09/29/19 in the Emergency Room. The patient was counseled regarding Diagnosis,Lab results, Imaging studies, need for follow up and when to return to the Emergency Room. Prescriptions given: Discharge Note I have spoken with the patient and/or caregivers. I have explained the patient' s condition, diagnosis and treatment plan based on the information available to me at this time. I have answered the patient's and/or caregiver's questions and addressed any concerns. The patient and/or caregivers have as good understanding of the patient's diagnosis, condition and treatment plan as can be expected at this point. The vital signs have been stable. The patient's condition is stable and appropriate for discharge from the emergency department. The patient will pursue further outpatient evaluation with the primary care physician or other designated or consulting physician as outlined in the discharge instructions. The patient and/or caregivers are agreeable to this plan of care and follow-up instructions have been explained in detail. The patient and/or caregivers have received these instruction. The patient/and or caregivers are aware that any significant change in condition or worsening of symptoms should prompt an immediate return to this or the closest emergency department or call 911. Tylenol 500 mg orally four times a day, Mucinex DM 1 tab orally two times a day Forms: Work/School Release Form
[2019-09-29 18:00] LABS: Group A Strep NEGATIVE (NEGATIVE); INFLUENZA A NEGATIVE (NEGATIVE); INFLUENZA B NEGATIVE (NEGATIVE); RESPIRATORY SYNCTIAL VIRUS NEGATIVE (Negative)
[2019-09-29 18:11] VITALS: BP 147/92; PULSE 84; O2SAT 100
== END 2019-09-29 18:09 | disposition home or self-care (01) ==
LOC: ED 16:03
DX: J02.9 Acute pharyngitis, unspecified (principal)
CPT/HCPCS: 87631; 87651; 99283

== ENCOUNTER 2020-11-30 14:00 | Emergency (ER) | payer MEDICAID ==
[2020-11-30 14:13] VITALS: O2SAT 98
--- NOTE | 2020-11-30 14:46 | XRAY ---
Indication: Pain following injury. Comparison: None 3 view right shoulder obtained. No bony, articular, or soft tissue abnormalities.
[2020-11-30] MEDS ORDERED: TORAdol 30 mg Injection IM ONE (15:19)
[2020-11-30] MEDS ORDERED: TORAdol 30 mg Injection ONE (15:20)
--- NOTE | 2020-11-30 15:26 | ERPHSYRPT ---
- History of Present Illness Time Seen by Provider: 11/30/20 14:20 Source: patient Exam Limitations: no limitations Patient Subjective Stated Complaint: pt here for pain to right shoulder after bending it back 2 days ago Triage Nursing Assessment: pt alert, walked in, mask in place,resp easy, skin w/d/p. pt able to get self undressed, has full range of motion Physician History: Patient is a 30-year-old male presents to our ED with complaints of right shoulder pain. Patient injured his shoulder when he was 18 years of age. Patient's recovery was nonoperative. Patient had been doing well up until 2 days ago when he overextended his right shoulder. Patient states he felt a pop. Patient did not immediately come to the ED as he felt the symptoms were improved. Patient is still experiencing right shoulder pain. Pain described as an ache that is well localized. No radiation. Pain worse with movement and palpation. Pain improved with rest. Patient denies chest pain. No shortness of breath. No nausea vomiting or diaphoresis. No neck pain. No headache. Patient otherwise healthy. He voices no other complaints concerns at this time. Occurred: days ago (2 days ago) Method of Injury: unknown Quality: constant Severity of Pain-Max: moderate Severity of Pain-Current: mild Extremities Pain Location: shoulder: right Modifying Factors: Improves With: movement Associated Symptoms: none Allergies/Adverse Reactions: methylphenidate [From Ritalin] Allergy (Verified 11/30/20 14:03) Home Medications: No Reportable Medications [No Reported Medications] 11/30/20 [History] Hx Tetanus, Diphtheria Vaccination/Date Given: Yes Hx Influenza Vaccination/Date Given: No Hx Pneumococcal Vaccination/Date Given: No Immunizations Up to Date: Yes Travel Risk - International Travel Have you traveled outside of the country in past 3 weeks: No - Coronavirus Screening Are you exhibiting any of the following symptoms?: No - Vaccine Status Have you recieved a Covid-19 vaccination: No - Past Medical History Pertinent Past Medical History: No Neurological History: No Pertinent History ENT History: No Pertinent History Cardiac History: No Pertinent History Respiratory History: No Pertinent History Endocrine Medical History: No Pertinent History Musculoskeletal History: No Pertinent History GI Medical History: No Pertinent History History: No Pertinent History Psycho-Social History: Attention Deficit Disorder Male Reproductive Disorders: No Pertinent History Other Medical History: fx toe and nose - Past Surgical History Past Surgical History: Yes Neuro Surgical History: No Pertinent History Cardiac: No Pertinent History Respiratory: No Pertinent History Gastrointestinal: Hernia Repair Genitourinary: No Pertinent History Musculoskeletal: No Pertinent History Male Surgical History: No Pertinent History Other Surgical History: tubes in ears, oral surgery - Social History Smoking Status: Current every day smoker How long have you smoked: 12 years Exposure to second hand smoke: No Drug Use: none Patient Lives Alone: No - Nursing Vital Signs Nursing Vital Signs: Initial Vital Signs Temperature 97.5 F 11/30/20 14:09 Pulse Rate 93 H 11/30/20 14:09 Respiratory Rate 18 11/30/20 14:09 Blood Pressure 128/92 11/30/20 14:09 O2 Sat by Pulse Oximetry 98 11/30/20 14:09 Pain Scale Pain Intensity 5 - Physical Exam General Appearance: no apparent distress, alert Eyes, Ears, Nose, Throat Exam: moist mucous membranes Neck Exam: non-tender, supple, full range of motion Cardiovascular/Respiratory Exam: chest non-tender, normal breath sounds, regular rate/rhythm, no respiratory distress Abdominal Exam: non-tender, No guarding Back Exam: normal inspection, No vertebral tenderness Shoulder Exam: normal inspection, No non-tender, No normal ROM (Guarded right shoulder motion. Tenderness to palpation anterior lateral right shoulder. Overlying soft tissue intact with no signs of trauma. Elbow wrist and hand are all neurovascular tact distally and asymptomatic.) Elbow/Forearm Exam: normal inspection, non-tender, no evidence of injury, normal ROM Wrist Exam: normal inspection, non-tender, no evidence of injury, normal ROM Hand Exam: normal inspection, non-tender, no evidence of injury, normal ROM Neuro/Tendon Exam: normal sensation, normal motor functions Mental Status Exam: alert, oriented x 3, cooperative Skin Exam: normal color, warm, dry SpO2 Interpretation: normal SpO2: 98 O2 Delivery: Room Air - Course Nursing assessment & vital signs reviewed: Yes - Radiology Exams Shoulder X-ray Interpretation: Teleradiologist Report (No fractures dislocations.) Ordered Tests: Active Orders 24 hr Category Date Time Status SHOULDER Stat Exams 11/30/20 14:15 Completed Medication Summary Discontinued Medications Generic Name Dose Route Start Last Admin Trade Name Freq PRN Reason Stop Dose Admin Ketorolac Tromethamine 30 mg 11/30/20 15:19 Toradol 30 Mg Injection IM 11/30/20 15:20 STAT ONE - Progress Progress: improved Progress Note: Patient received a dose of Toradol for pain control. A right upper extremity sling was provided. Patient feels better. A work note was provided as well. Patient voiced no other complaints concerns at this time. Will discharge at this time. Patient will rest his shoulder for approximately 1 week. If pain does not improve he will consider the possibility of MRI. Extremity neurovascular intact as prior to discharge. 11/30/20 15:23 Counseled pt/family regarding: diagnosis, need for follow-up, rad results - Departure Departure Disposition: Home Clinical Impression: Sprain of shoulder Condition: Stable Critical Care Time: No Referrals: DENICE CUTLER [Primary Care Provider] - Additional Instructions: Discharge/Care Plan JIM RODAS was seen on 11/30/20 in the Emergency Room. The patient was counseled regarding Diagnosis,Lab results, Imaging studies, need for follow up and when to return to the Emergency Room. Prescriptions given: Discharge Note I have spoken with the patient and/or caregivers. I have explained the patient's condition, diagnosis and treatment plan based on the information available to me at this time. I have answered the patient's and/or caregiver's questions and addressed any concerns. The patient and/or caregivers have as good understanding of the patient's diagnosis, condition and treatment plan as can be expected at this point. The vital signs have been stable. The patient's condition is stable and appropriate for discharge from the emergency department. The patient will pursue further outpatient evaluation with the primary care physician or other designated or consulting physician as outlined in the discharge instructions. The patient and/or caregivers are agreeable to this plan of care and follow-up instructions have been explained in detail. The patient and/or caregivers have received these instruction. The patient/and or caregivers are aware that any significant change in condition or worsening of symptoms should prompt an immediate return to this or the closest emergency department or call 911. Forms: Work/School Release Form
[2020-11-30 15:27] VITALS: BP 140/100; PULSE 73
== END 2020-11-30 15:39 | disposition home or self-care (01) ==
LOC: ED 14:00
DX: S43.401A Unspecified sprain of right shoulder joint, initial encounter (principal); M25.511 Pain in right shoulder; X50.0XXA Overexertion from strenuous movement or load, initial encounter; Y93.9 Activity, unspecified; Y92.9 Unspecified place or not applicable
CPT/HCPCS: 73030; 96372; 99284; J1885

== ENCOUNTER 2021-02-17 16:17 | Emergency (ER) | payer SELFPAY ==
[2021-02-17 16:29] VITALS: O2SAT 97
[2021-02-17] MEDS ORDERED: Sodium Chloride 0.9% 1000 ML 1,000 ML IV STA (16:31)
[2021-02-17] MEDS ORDERED: Zofran 4 MG/2 ML VIAL IV ONE (16:39)
[2021-02-17] MEDS ORDERED: Sodium Chloride 0.9% 1000 ML 1,000 ML ONE (16:41)
[2021-02-17] MEDS ORDERED: Zofran 4 MG/2 ML VIAL ONE (16:41)
--- NOTE | 2021-02-17 16:57 | XRAY ---
Indication: Cough. Comparison: January 17, 2019. Portable chest again demonstrates normal heart, lungs, and bony thorax.
[2021-02-17 16:58] LABS: Absolute Neutrophil Ct (ANC) 4.11 (1.4-6.9); BASOPHIL % 0.5 % (0.0-0.4); Basophil (Absolute #) 0.04 (0-0.4); Eosinophil % 3.4 % (0.00-5.0); Eosinophil (Absolute #) 0.26 (0-0.5); Hematocrit 45.9 % (42-50); Hemoglobin 15.6 gm/dl (12.5-18.0); Lymphocyte (Absolute #) 2.74 (1.0-4.6); Lymphocytes % 35.6 % (24.0-44.0); Mean Cell Volume 89.3 fl (78-100); Mean Corpuscular Hemoglobin 30.4 pg (26-32); Mean Platelet Volume 10.8 fl (7.5-11.0); Monocyte (Absolute #) 0.54 (0.0-1.3); Neutrophil % 53.5 % (36.0-66.0); Platelet Count 164 K/mm3 (150-450); Red Blood Count 5.14 M/mm3 (4.1-5.6); Red Cell Distribution Width 13.1 % (11.5-14.0); White Blood Count 7.7 K/mm3 (4.0-10.5)
[2021-02-17 17:07] LABS: INR 0.93 (0.8-3.0)
[2021-02-17 17:12] LABS: ALKALINE PHOSPHATASE 49 U/L (38-126); BLOOD UREA NITROGEN 17 mg/dL (9-20); CHLORIDE 106 mmol/L (98-107); Calcium 8.8 mg/dL (8.4-10.2); Carbon Dioxide 24 mmol/L (22-30); EST GLOMERULAR FILTRATION RATE > 60.0 ML/MIN; Glucose 124 mg/dL (74-106); SGOT/AST 31 U/L (17-59); SGPT/ALT 29 U/L (0-50); SODIUM 140 mmol/L (137-145); Total Protein 6.5 g/dL (6.3-8.2)
[2021-02-17 17:12] LABS: Appearance CLEAR (CLEAR); Bilirubin NEGATIVE (NEGATIVE); Blood NEGATIVE Ery/ul (0-5); Glucose NEGATIVE (NEGATIVE); Ketones NEGATIVE (NEGATIVE); Leukocyte Esterase NEGATIVE (NEGATIVE); Mucus SLIGHT /HPF (NEGATIVE); Nitrite NEGATIVE (NEGATIVE); Protein,Urine Dip NEGATIVE (Negative); Urobilinogen 2 mg/dL (0-1)
[2021-02-17 17:19] LABS: INFLUENZA A NEGATIVE (NEGATIVE); INFLUENZA B NEGATIVE (NEGATIVE)
--- NOTE | 2021-02-17 17:48 | ERPHSYRPT ---
- History of Present Illness Time Seen by Provider: 02/17/21 16:35 Historian: patient Exam Limitations: no limitations Patient Subjective Stated Complaint: pt c/o of a headache for the past couple of days and today he began vomiting, sore throat, body aches Triage Nursing Assessment: Pt brought self to the ER, vitals wnl, c/o of headache, body aches, vomiting, sore throat, loss of smell, rates overall pain as 5/10, skin n/w/d, pulses normal, doesn't appear to be in any distress Physician History: Patient is a 30-year-old male who started with a headache 2 days ago who presents to the ER after he was sent home from work after he vomited on 2 occasions today at work. He also complains of sore throat body aches no nproductive cough and loss of smell. He has not had a vaccination. Timing/Duration: day(s) (2), worse Activities at Onset: none Quality: aching, cramping Abdominal Pain Onset Location: generalized abdomen Severity of Pain-Max: moderate Severity of Pain-Current: moderate Modifying Factors: Improves With: vomiting Associated Symptoms: chest pain, nausea, shortness of breath, vomiting, weakness Previous symptoms: no prior history Allergies/Adverse Reactions: methylphenidate [From Ritalin] Allergy (Verified 02/17/21 16:29) Hx Tetanus, Diphtheria Vaccination/Date Given: Yes Hx Influenza Vaccination/Date Given: No Hx Pneumococcal Vaccination/Date Given: No Travel Risk - International Travel Have you traveled outside of the country in past 3 weeks: No - Coronavirus Screening Are you exhibiting any of the following symptoms?: Yes Symptoms: Vomiting/Diarrhea, Loss of Taste or Smell, Headaches/Body Aches/Fatigue Close contact with a COVID-19 positive Pt in past 14-21 Days: No - Vaccine Status Have you recieved a Covid-19 vaccination: No - Review of Systems Constitutional: Fever, Lethargy, Malaise, Weakness, No Chills Eyes: No Symptoms Ears, Nose, & Throat: Sinus Drainage, Throat Pain, Painful Swallowing Respiratory: Cough, No Dyspnea Cardiac: Chest Pain, No Edema, No Syncope Abdominal/Gastrointestinal: Abdominal Pain, Nausea, Vomiting, No Diarrhea Genitourinary Symptoms: No Dysuria Musculoskeletal: No Back Pain, No Neck Pain Skin: No Rash Neurological: Headache, No Dizziness, No Focal Weakness, No Sensory Changes Psychological: No Symptoms Endocrine: No Symptoms All Other Systems: Reviewed and Negative - Past Medical History Pertinent Past Medical History: Yes Neurological History: No Pertinent History ENT History: No Pertinent History Cardiac History: No Pertinent History Respiratory History: No Pertinent History Endocrine Medical History: No Pertinent History Musculoskeletal History: Fractures GI Medical History: No Pertinent History History: No Pertinent History Psycho-Social History: Attention Deficit Disorder Male Reproductive Disorders: No Pertinent History Other Medical History: fx toe and nose - Past Surgical History Past Surgical History: Yes Neuro Surgical History: No Pertinent History Cardiac: No Pertinent History Respiratory: No Pertinent History Gastrointestinal: Hernia Repair Genitourinary: No Pertinent History Musculoskeletal: No Pertinent History Male Surgical History: No Pertinent History Other Surgical History: tubes in ears, oral surgery - Social History Smoking Status: Current every day smoker How long have you smoked: 12 years Exposure to second hand smoke: Yes Drug Use: none Patient Lives Alone: No - Nursing Vital Signs Nursing Vital Signs: Initial Vital Signs Temperature 98.1 F 02/17/21 16:19 Pulse Rate 87 02/17/21 16:19 Blood Pressure 136/86 02/17/21 16:19 O2 Sat by Pulse Oximetry 97 02/17/21 16:19 Pain Scale Pain Intensity 0 - Physical Exam General Appearance: mild distress, alert Eye Exam: PERRL/EOMI, eyes nml inspection Ears, Nose, Throat Exam: moist mucous membranes, pharyngeal erythema Neck Exam: normal inspection, non-tender, supple, full range of motion Respiratory Exam: normal breath sounds, lungs clear, No respiratory distress Cardiovascular Exam: regular rate/rhythm, normal heart sounds Gastrointestinal/Abdomen Exam: soft, No tenderness, No mass Back Exam: normal inspection, normal range of motion, No CVA tenderness, No vertebral tenderness Extremity Exam: normal inspection, normal range of motion, pelvis stable Neurologic Exam: alert, oriented x 3, cooperative, normal mood/affect, nml cerebellar function, sensation nml, No motor deficits Skin Exam: normal color, warm, dry SpO2 Interpretation: normal SpO2: 97 O2 Delivery: Room Air - Course Nursing assessment & vital signs reviewed: Yes EKG Interpreted by Me: RATE (77), Sinus Rhythm, NORMAL AXIS, NORMAL INTERVALS, NORMAL QRS, NORMAL ST-T - Radiology Exams Chest X-ray Interpretation: Interpreted by me, Negative Ordered Tests: Active Orders 24 hr Category Date Time Status EKG-ER Only STAT Care 02/17/21 16:31 Active IV Insertion STAT Care 02/17/21 16:39 Active CHEST 1 VIEW (PORTABLE) Stat Exams 02/17/21 16:31 Completed CBC W DIFF Stat Lab 02/17/21 16:50 Completed CMP Stat Lab 02/17/21 16:50 Completed D-DIMER QUANTITATIVE Stat Lab 02/17/21 16:34 Completed INFLUENZA A+B JAMAR Stat Lab 02/17/21 16:50 Completed LDH-LACTATE DEHYDROGENASE Stat Lab 02/17/21 16:50 Completed Lactic Acid Stat Lab 02/17/21 16:31 Completed PROCALCITONIN Stat Lab 02/17/21 16:50 Completed PROTIME WITH INR Stat Lab 02/17/21 16:50 Completed TROPONIN Q3H Lab 02/17/21 16:45 Completed TROPONIN Q3H Lab 02/17/21 19:45 Ordered TROPONIN Q3H Lab 02/17/21 22:45 Ordered UA W/RFX UR CULTURE Stat Lab 02/17/21 16:39 Completed Medication Summary Discontinued Medications Generic Name Dose Route Start Last Admin Trade Name Freq PRN Reason Stop Dose Admin Sodium Chloride 1,000 mls @ 999 mls/hr 02/17/21 16:31 02/17/21 18:08 Sodium Chloride 0.9% 1000 Ml IV 02/17/21 17:31 Infused .Q1H1M STA Infusion Sodium Chloride Confirm 02/17/21 16:41 Sodium Chloride 0.9% 1000 Ml Administered 02/17/21 16:42 Dose 1,000 mls @ ud .ROUTE .STK-MED ONE Ondansetron HCl 4 mg 02/17/21 16:39 02/17/21 16:43 Zofran 4 Mg/2 Ml Vial IV 02/17/21 16:40 4 mg STAT ONE Administration Ondansetron HCl Confirm 02/17/21 16:41 Zofran 4 Mg/2 Ml Vial Administered 02/17/21 16:42 Dose 4 mg .ROUTE .STK-MED ONE Lab/Rad Data: Laboratory Result Diagrams 02/17/21 16:50 02/17/21 16:50 Laboratory Results 02/17/21 02/17/21 02/17/21 Range/Units Unknown 16:50 16:50 WBC (4.0-10.5) K/mm3 RBC (4.1-5.6) M/mm3 Hgb (12.5-18.0) gm/dl Hct (42-50) % MCV (78-100) fl MCH (26-32) pg MCHC (32-36) g/dl RDW (11.5-14.0) % Plt Count (150-450) K/mm3 MPV (7.5-11.0) fl Gran % (36.0-66.0) % Eos # (Auto) (0-0.5) Absolute Lymphs (auto) (1.0-4.6) Absolute Monos (auto) (0.0-1.3) Lymphocytes % (24.0-44.0) % Monocytes % (0.0-12.0) % Eosinophils % (0.00-5.0) % Basophils % (0.0-0.4) % Absolute Granulocytes (1.4-6.9) Basophils # (0-0.4) PT (9.4-12.5) SECONDS INR (0.8-3.0) D-Dimer (215-500) ng/mL Sodium (137-145) mmol/L Potassium (3.5-5.1) mmol/L Chloride (98-107) mmol/L Carbon Dioxide (22-30) mmol/L Anion Gap (5-15) MEQ/L BUN (9-20) mg/dL Creatinine (0.66-1.25) mg/dL Estimated GFR ML/MIN Glucose (74-106) mg/dL Lactic Acid (0.4-2.0) Calcium (8.4-10.2) mg/dL Total Bilirubin (0.2-1.3) mg/dL AST (17-59) U/L ALT (0-50) U/L Alkaline Phosphatase (38-126) U/L Lactate Dehydrogenase (120-246) U/L Troponin I (0.000-0.034) ng/mL Serum Total Protein (6.3-8.2) g/dL Albumin (3.5-5.0) g/dL Procalcitonin 0.044 (0.030-0.080) ng/mL Urine Color (YELLOW) Urine Appearance (CLEAR) Urine pH (5-6) Ur Specific Owings (1.005-1.025) Urine Protein (Negative) Urine Ketones (NEGATIVE) Urine Blood (0-5) Jude/ul Urine Nitrite (NEGATIVE) Urine Bilirubin (NEGATIVE) Urine Urobilinogen (0-1) mg/dL Ur Leukocyte Esterase (NEGATIVE) Urine WBC (Auto) (0-5) /HPF Urine RBC (Auto) (0-2) /HPF U Epithel Cells (Auto) (FEW) /HPF Urine Bacteria (Auto) (NEGATIVE) /HPF Urine Mucus (Auto) (NEGATIVE) /HPF Urine Culture Reflexed (NO) Urine Glucose (NEGATIVE) mg/dL Influenza Type A Ag NEGATIVE (NEGATIVE) Influenza Type B Ag NEGATIVE (NEGATIVE) SARS-CoV-2 (PCR) NEGATIVE (NEGATIVE) 02/17/21 02/17/21 02/17/21 Range/Units 16:50 16:50 16:50 WBC (4.0-10.5) K/mm3 RBC (4.1-5.6) M/mm3 Hgb (12.5-18.0) gm/dl Hct (42-50) % MCV (78-100) fl MCH (26-32) pg MCHC (32-36) g/dl RDW (11.5-14.0) % Plt Count (150-450) K/mm3 MPV (7.5-11.0) fl Gran % (36.0-66.0) % Eos # (Auto) (0-0.5) Absolute Lymphs (auto) (1.0-4.6) Absolute Monos (auto) (0.0-1.3) Lymphocytes % (24.0-44.0) % Monocytes % (0.0-12.0) % Eosinophils % (0.00-5.0) % Basophils % (0.0-0.4) % Absolute Granulocytes (1.4-6.9) Basophils # (0-0.4) PT 11.0 (9.4-12.5) SECONDS INR 0.93 (0.8-3.0) D-Dimer (215-500) ng/mL Sodium 140 (137-145) mmol/L Potassium 4.0 (3.5-5.1) mmol/L Chloride 106 (98-107) mmol/L Carbon Dioxide 24 (22-30) mmol/L Anion Gap 14.0 (5-15) MEQ/L BUN 17 (9-20) mg/dL Creatinine 1.10 (0.66-1.25) mg/dL Estimated GFR > 60.0 ML/MIN Glucose 124 H (74-106) mg/dL Lactic Acid (0.4-2.0) Calcium 8.8 (8.4-10.2) mg/dL Total Bilirubin 0.20 (0.2-1.3) mg/dL AST 31 (17-59) U/L ALT 29 (0-50) U/L Alkaline Phosphatase 49 (38-126) U/L Lactate Dehydrogenase 178 (120-246) U/L Troponin I (0.000-0.034) ng/mL Serum Total Protein 6.5 (6.3-8.2) g/dL Albumin 4.0 (3.5-5.0) g/dL Procalcitonin (0.030-0.080) ng/mL Urine Color (YELLOW) Urine Appearance (CLEAR) Urine pH (5-6) Ur Specific Owings (1.005-1.025) Urine Protein (Negative) Urine Ketones (NEGATIVE) Urine Blood (0-5) Jude/ul Urine Nitrite (NEGATIVE) Urine Bilirubin (NEGATIVE) Urine Urobilinogen (0-1) mg/dL Ur Leukocyte Esterase (NEGATIVE) Urine WBC (Auto) (0-5) /HPF Urine RBC (Auto) (0-2) /HPF U Epithel Cells (Auto) (FEW) /HPF Urine Bacteria (Auto) (NEGATIVE) /HPF Urine Mucus (Auto) (NEGATIVE) /HPF Urine Culture Reflexed (NO) Urine Glucose (NEGATIVE) mg/dL Influenza Type A Ag (NEGATIVE) Influenza Type B Ag (NEGATIVE) SARS-CoV-2 (PCR) (NEGATIVE) 02/17/21 02/17/21 02/17/21 Range/Units 16:50 16:45 16:39 WBC 7.7 (4.0-10.5) K/mm3 RBC 5.14 (4.1-5.6) M/mm3 Hgb 15.6 (12.5-18.0) gm/dl Hct 45.9 (42-50) % MCV 89.3 (78-100) fl MCH 30.4 (26-32) pg MCHC 34.0 (32-36) g/dl RDW 13.1 (11.5-14.0) % Plt Count 164 (150-450) K/mm3 MPV 10.8 (7.5-11.0) fl Gran % 53.5 (36.0-66.0) % Eos # (Auto) 0.26 (0-0.5) Absolute Lymphs (auto) 2.74 (1.0-4.6) Absolute Monos (auto) 0.54 (0.0-1.3) Lymphocytes % 35.6 (24.0-44.0) % Monocytes % 7.0 (0.0-12.0) % Eosinophils % 3.4 (0.00-5.0) % Basophils % 0.5 (0.0-0.4) % Absolute Granulocytes 4.11 (1.4-6.9) Basophils # 0.04 (0-0.4) PT (9.4-12.5) SECONDS INR (0.8-3.0) D-Dimer (215-500) ng/mL Sodium (137-145) mmol/L Potassium (3.5-5.1) mmol/L Chloride (98-107) mmol/L Carbon Dioxide (22-30) mmol/L Anion Gap (5-15) MEQ/L BUN (9-20) mg/dL Creatinine (0.66-1.25) mg/dL Estimated GFR ML/MIN Glucose (74-106) mg/dL Lactic Acid (0.4-2.0) Calcium (8.4-10.2) mg/dL Total Bilirubin (0.2-1.3) mg/dL AST (17-59) U/L ALT (0-50) U/L Alkaline Phosphatase (38-126) U/L Lactate Dehydrogenase (120-246) U/L Troponin I < 0.012 (0.000-0.034) ng/mL Serum Total Protein (6.3-8.2) g/dL Albumin (3.5-5.0) g/dL Procalcitonin (0.030-0.080) ng/mL Urine Color YELLOW (YELLOW) Urine Appearance CLEAR (CLEAR) Urine pH 5.0 (5-6) Ur Specific [place] 1.020 (1.005-1.025) Urine Protein NEGATIVE (Negative) Urine Ketones NEGATIVE (NEGATIVE) Urine Blood NEGATIVE (0-5) Jude/ul Urine Nitrite NEGATIVE (NEGATIVE) Urine Bilirubin NEGATIVE (NEGATIVE) Urine Urobilinogen 2 (0-1) mg/dL Ur Leukocyte Esterase NEGATIVE (NEGATIVE) Urine WBC (Auto) NONE (0-5) /HPF Urine RBC (Auto) NONE (0-2) /HPF U Epithel Cells (Auto) NONE (FEW) /HPF Urine Bacteria (Auto) NONE (NEGATIVE) /HPF Urine Mucus (Auto) SLIGHT (NEGATIVE) /HPF Urine Culture Reflexed NO (NO) Urine Glucose NEGATIVE (NEGATIVE) mg/dL Influenza Type A Ag (NEGATIVE) Influenza Type B Ag (NEGATIVE) SARS-CoV-2 (PCR) (NEGATIVE) 02/17/21 02/17/21 Range/Units 16:34 16:31 WBC (4.0-10.5) K/mm3 RBC (4.1-5.6) M/mm3 Hgb (12.5-18.0) gm/dl Hct (42-50) % MCV (78-100) fl MCH (26-32) pg MCHC (32-36) g/dl RDW (11.5-14.0) % Plt Count (150-450) K/mm3 MPV (7.5-11.0) fl Gran % (36.0-66.0) % Eos # (Auto) (0-0.5) Absolute Lymphs (auto) (1.0-4.6) Absolute Monos (auto) (0.0-1.3) Lymphocytes % (24.0-44.0) % Monocytes % (0.0-12.0) % Eosinophils % (0.00-5.0) % Basophils % (0.0-0.4) % Absolute Granulocytes (1.4-6.9) Basophils # (0-0.4) PT (9.4-12.5) SECONDS INR (0.8-3.0) D-Dimer 321 (215-500) ng/mL Sodium (137-145) mmol/L Potassium (3.5-5.1) mmol/L Chloride (98-107) mmol/L Carbon Dioxide (22-30) mmol/L Anion Gap (5-15) MEQ/L BUN (9-20) mg/dL Creatinine (0.66-1.25) mg/dL Estimated GFR ML/MIN Glucose (74-106) mg/dL Lactic Acid 1.5 (0.4-2.0) Calcium (8.4-10.2) mg/dL Total Bilirubin (0.2-1.3) mg/dL AST (17-59) U/L ALT (0-50) U/L Alkaline Phosphatase (38-126) U/L Lactate Dehydrogenase (120-246) U/L Troponin I (0.000-0.034) ng/mL Serum Total Protein (6.3-8.2) g/dL Albumin (3.5-5.0) g/dL Procalcitonin (0.030-0.080) ng/mL Urine Color (YELLOW) Urine Appearance (CLEAR) Urine pH (5-6) Ur Specific [place] (1.005-1.025) Urine Protein (Negative) Urine Ketones (NEGATIVE) Urine Blood (0-5) Jude/ul Urine Nitrite (NEGATIVE) Urine Bilirubin (NEGATIVE) Urine Urobilinogen (0-1) mg/dL Ur Leukocyte Esterase (NEGATIVE) Urine WBC (Auto) (0-5) /HPF Urine RBC (Auto) (0-2) /HPF U Epithel Cells (Auto) (FEW) /HPF Urine Bacteria (Auto) (NEGATIVE) /HPF Urine Mucus (Auto) (NEGATIVE) /HPF Urine Culture Reflexed (NO) Urine Glucose (NEGATIVE) mg/dL Influenza Type A Ag (NEGATIVE) Influenza Type B Ag (NEGATIVE) SARS-CoV-2 (PCR) (NEGATIVE) - Progress Progress: unchanged - Departure Departure Disposition: Home Clinical Impression: Viral illness Condition: Stable Critical Care Time: No Referrals: DENICE CUTLER [Primary Care Provider] - Instructions: Viral Syndrome (DC) Additional Instructions: Remain in isolation for at least 72 hours I would recommend retesting for Covid in 48 to 72 hours. Prescriptions: Dexamethasone [Decadron] 6 mg PO BID 5 Days #10 tablet Metoclopramide HCl 10 mg [Reglan 10 MG] 10 mg PO Q6H 5 Days #20 tablet Azithromycin 250 mg [Zithromax 250 MG TABLET] 250 mg PO ZPACK #6 tablet
[2021-02-17 18:19] VITALS: BP 119/75; PULSE 80
== END 2021-02-17 18:30 | disposition home or self-care (01) ==
LOC: ED 16:17
DX: B34.9 Viral infection, unspecified (principal)
CPT/HCPCS: 36000; 36415; 71045; 80053; 81001; 83605; 83615; 84145; 84484; 85025; 85379; 85610; 87400; 93005; 96360; 96374; 99284; U0003; J2405

== ENCOUNTER 2022-11-29 12:02 | Emergency (ER) | payer SELFPAY ==
--- NOTE | 2022-11-29 12:07 | ERPHSYRPT ---
- History of Present Illness Time Seen by Provider: 11/29/22 12:07 Source: patient Exam Limitations: no limitations Physician History: This is a 32-year-old white male patient of Dr. Solomon who has had intermittent chronic low back pain issues. He has never had any back surgery. He presents with low back pain that began today at work. It was sudden in onset and significant. He has not had any urinary incontinence or bowel incontinence. He has no numbness to his feet. Patient states that he started a new job 3 weeks ago in a [employer] and does do a lot of heavy lifting twisting and turning. Method of Injury: bending, lifting, twisted, turning Quality: aching Back Pain Location: lumbar spine, paraspinous muscles Severity of Pain-Max: moderate Severity of Pain-Current: moderate Modifying Factors: Improves With: movement Associated Symptoms: lower back pain, muscle spasms, No urinary incontinence, No loss of bowel control, No numbness in legs/feet, No sensory/motor loss, No tingling in legs/feet Previous symptoms: same symptoms as today, no recent treatment Allergies/Adverse Reactions: methylphenidate [From Ritalin] Allergy (Verified 11/29/22 12:06) Hx Tetanus, Diphtheria Vaccination/Date Given: Yes Hx Influenza Vaccination/Date Given: No Hx Pneumococcal Vaccination/Date Given: No Travel Risk - International Travel Have you traveled outside of the country in past 3 weeks: No - Coronavirus Screening Are you exhibiting any of the following symptoms?: No Close contact with a COVID-19 positive Pt in past 14-21 Days: No - Vaccine Status Have you recieved a Covid-19 vaccination: No - Review of Systems Constitutional: No Symptoms Eyes: No Symptoms Ears, Nose, & Throat: No Symptoms Respiratory: No Symptoms Cardiac: No Symptoms Abdominal/Gastrointestinal: No Symptoms Musculoskeletal: Back Pain (No injury, fall or trauma), No Fall, No Injury Skin: No Symptoms Neurological: No Symptoms Psychological: No Symptoms Endocrine: No Symptoms Hematologic/Lymphatic: No Symptoms Immunological/Allergic: No Symptoms All Other Systems: Reviewed and Negative - Past Medical History Pertinent Past Medical History: Yes Neurological History: No Pertinent History ENT History: No Pertinent History Cardiac History: No Pertinent History Respiratory History: No Pertinent History Endocrine Medical History: No Pertinent History Musculoskeletal History: Fractures GI Medical History: No Pertinent History History: No Pertinent History Psycho-Social History: Attention Deficit Disorder Male Reproductive Disorders: No Pertinent History Other Medical History: fx toe and nose - Past Surgical History Past Surgical History: Yes Neuro Surgical History: No Pertinent History Cardiac: No Pertinent History Respiratory: No Pertinent History Gastrointestinal: Hernia Repair Genitourinary: No Pertinent History Musculoskeletal: No Pertinent History Male Surgical History: No Pertinent History Other Surgical History: tubes in ears, oral surgery - Social History Smoking Status: Current every day smoker How long have you smoked: 12 years Exposure to second hand smoke: Yes Drug Use: none Patient Lives Alone: No - Nursing Vital Signs Nursing Vital Signs: Initial Vital Signs Temperature 97.9 F 11/29/22 12:07 Pulse Rate 94 H 11/29/22 12:07 Respiratory Rate 18 11/29/22 12:07 Blood Pressure 140/96 11/29/22 12:07 O2 Sat by Pulse Oximetry 98 11/29/22 12:07 Pain Scale Pain Intensity 6 - Physical Exam General Appearance: no apparent distress, alert, anxiety Eye Exam: PERRL/EOMI, eyes nml inspection Ears, Nose, Throat Exam: normal ENT inspection, moist mucous membranes Neck Exam: normal inspection, non-tender, supple, full range of motion Respiratory Exam: No chest tenderness Gastrointestinal Exam: No tenderness Rectal Exam: not done Back Exam: normal inspection, decreased range of motion, muscle spasm, No CVA tenderness, No vertebral tenderness Extremity Exam: normal inspection, normal range of motion, pelvis stable Neurologic Exam: alert, oriented x 3, cooperative, 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, normal mood/affect, nml cerebellar function, sensation nml Skin Exam: normal color, warm, dry Lymphatic Exam: No adenopathy SpO2 Interpretation: normal O2 Delivery: Room Air - Course Nursing assessment & vital signs reviewed: Yes Ordered Tests: Active Orders 24 hr Category Date Time Status LUMBAR LIMITED (2 OR 3 VIEWS) Stat Exams 11/29/22 12:14 Completed Medication Summary Discontinued Medications Generic Name Dose Route Start Last Admin Trade Name Eduardoq PRN Reason Stop Dose Admin Methylprednisolone Sodium 0 mg 11/29/22 12:38 11/29/22 12:47 Succinate 120 mg/ Sterile IM 11/29/22 12:39 120 mg Water 1 ml STAT STA Administration Methylprednisolone Sodium Succinate Confirm 11/29/22 12:46 Methylprednisolone Sod Suc 40m 40 Mg/Ml Vial Administered 11/29/22 12:47 Dose 120 mg .ROUTE .STK-MED ONE Orphenadrine Citrate 60 mg 11/29/22 12:38 11/29/22 12:45 Orphenadrine Citrate 60 Mg/2 Ml Vial IM 11/29/22 12:39 60 mg STAT ONE Administration Orphenadrine Citrate Confirm 11/29/22 12:43 Orphenadrine Citrate 60 Mg/2 Ml Vial Administered 11/29/22 12:44 Dose 60 mg .ROUTE .STK-MED ONE Oxycodone/Acetaminophen 1 tab 11/29/22 12:38 11/29/22 12:44 Oxycodone / Apap 10/325 Mg 1 Tablet PO 11/29/22 12:39 1 tab STAT STA Administration Oxycodone/Acetaminophen Confirm 11/29/22 12:43 Oxycodone / Apap 10/325 Mg 1 Tablet Administered 11/29/22 12:44 Dose 1 tab .ROUTE .STK-MED ONE Sterile Water Confirm 11/29/22 12:46 Water For Injection,Sterile 10 Ml Vial Administered 11/29/22 12:47 Dose 10 ml IJ .STK-MED ONE - Progress Progress: improved, pain not gone completely Progress Note: 11/29/22 12:45 This patient's medical issue is of low complexity. The level of complexity and the work-up performed is based on review of the patient's past medical history, review of the patient's medication list, review of the patient's drug allergy list, history of present illness and physical findings on examination. The work-up for this patient includes a lumbar spine x-ray. He has no urinary tract infection symptoms and so I do not feel it necessary to perform a urinalysis in this patient. Patient did not suffer any traumatic injury or fall so I feel a plain x-ray of the lumbar spine is appropriate. We will provide the patient with a oral Percocet 10/325, intramuscular orphenadrine and intramuscular Solu- Medrol injection followed by outpatient prednisone and orphenadrine to be sent to his pharmacy remotely. He is to follow-up with his primary care provider. 11/29/22 12:59 X-ray of the lumbar spine shows T 11 to T12 endplate spurring. There is minimal L5-S1 disc narrowing. There is no evidence of any acute fracture or subluxation. The x-ray was interpreted by the radiologist. The impression was reviewed by me. Counseled pt/family regarding: diagnosis, need for follow-up, rad results Medical Desision Making - Diagnostic Testing Radiological Interpretation: Reviewed by me, Teleradiologist Report - Risk of complications The pt has a mod risk of morbidity or mortality based on: Need for prescription drug management - Departure Departure Disposition: Home Clinical Impression: Acute exacerbation of chronic low back pain Condition: Stable Critical Care Time: No Referrals: DENICE SOLOMON [Primary Care Provider] - Follow up/PCP as directed Additional Instructions: Take your medication as prescribed. Follow-up with your primary care provider today by phone and make an appointment to be seen in the next 3 to 5 days. Forms: Work/School Release Form Prescriptions: Prednisone 10 mg [Deltasone 10 mg] 10 mg PO TID #12 tablet Orphenadrine Citrate 100 mg [Norflex 100 MG Tablet] 100 mg PO BID #10 tab
[2022-11-29] MEDS ORDERED: Norflex 60 MG/2 ML IM ONE (12:38)
[2022-11-29] MEDS ORDERED: OXYCODONE-ACETAMINOPHEN 10-325 PO STA (12:38)
[2022-11-29] MEDS ORDERED: solu-MEDROL 120 MG, Sterile H2O 10 ml 1 ML IM STA ×2 (12:38)
[2022-11-29] MEDS ORDERED: Norflex 60 MG/2 ML ONE (12:43)
[2022-11-29] MEDS ORDERED: OXYCODONE-ACETAMINOPHEN 10-325 ONE (12:43)
[2022-11-29] MEDS ORDERED: solu-MEDROL ONE (12:46)
[2022-11-29] MEDS ORDERED: Sterile H2O 10 ml IJ ONE (12:46)
--- NOTE | 2022-11-29 12:55 | XRAY ---
Indication: Low back pain for months. Comparison: None 3 view lumbar spine demonstrates 5 lumbar segments in normal alignment with mild T11-T12 endplate spurring and minimal L5-S1 disc space narrowing. No other bony, articular, or soft tissue abnormalities.
[2022-11-29 13:14] VITALS: BP 129/91; PULSE 77; O2SAT 97
== END 2022-11-29 13:10 | disposition home or self-care (01) ==
LOC: ED 12:02
DX: G89.29 Other chronic pain (principal); M54.50 Low back pain, unspecified; Z79.52 Long term (current) use of systemic steroids; Z28.310 Unvaccinated for COVID-19; Z72.0 Tobacco use
CPT/HCPCS: 72100; 96372; 99283; J2360; J2920; A9270-GY

== ENCOUNTER 2023-04-23 23:26 | Emergency (ER) | payer MEDICAID ==
[2023-04-23] MEDS ORDERED: MORPHINE SULFATE 4 MG INJ IV ONE (23:40)
[2023-04-23] MEDS ORDERED: BABY ASPIRIN 81 MG CHEW PO ONE (23:40)
[2023-04-23] MEDS ORDERED: Zofran 4 MG/2 ML VIAL IV ONE (23:40)
[2023-04-23 23:51] LABS: Absolute Neutrophil Ct (ANC) 6.04 x10^3/uL (1.4-6.9); BASOPHIL % 0.6 % (0.0-0.4); Basophil (Absolute #) 0.06 x10^3/uL (0-0.4); Eosinophil % 1.4 % (0.00-5.0); Eosinophil (Absolute #) 0.14 x10^3/uL (0-0.5); Hematocrit 48.8 % (42-50); Hemoglobin 16.7 g/dL (12.5-18.0); IMMATURE GRAN # 0.02 x10^3u/L (0.00-0.03); IMMATURE GRAN % 0.2 % (0.00-0.4); Lymphocytes % 29.1 % (24.0-44.0); Mean Cell Volume 90.4 fL (78-100); Mean Corpuscular Hemoglobin 30.9 pg (26-32); Mean Corpuscular Hgb Concent. 34.2 g/dL (32-36); Mean Platelet Volume 10.1 fL (7.5-11.0); Neutrophil % 60.7 % (36.0-66.0); Platelet Count 201 x10^3/uL (150-450); Red Cell Distribution Width 12.1 % (11.5-14.0)
[2023-04-23] MEDS ORDERED: BABY ASPIRIN 81 MG CHEW ONE (23:54)
--- NOTE | 2023-04-23 23:59 | ERPHSYRPT ---
- History of Present Illness Time Seen by Provider: 04/23/23 23:30 Historian: patient Exam Limitations: no limitations Physician History: 32 years old male with history of anxiety presented to the ER with chief complaint of sudden onset chest pain around 10:20 PM while he was driving. Patient reported he has been going through a lot of stress lately and has been having off-and-on chest pains this week. Reports severe chest pain earlier on the left side with some radiation to the neck and jaw area but improved on its own and currently moderate intensity pain without any difficulty breathing, cough fever or chills. No history of coronary artery disease in the past. Does report smoking marijuana and tobacco. Nitro Today/Relief: no nitro taken today Aspirin Treatment Today: no aspirin today Allergies/Adverse Reactions: methylphenidate [From Ritalin] Allergy (Verified 04/23/23 23:27) Hx Tetanus, Diphtheria Vaccination/Date Given: Yes Hx Influenza Vaccination/Date Given: No Hx Pneumococcal Vaccination/Date Given: No Travel Risk - Vaccine Status Have you recieved a Covid-19 vaccination: No - Review of Systems Constitutional: No Symptoms Eyes: No Symptoms Ears, Nose, & Throat: No Symptoms Respiratory: No Symptoms Cardiac: Chest Pain Abdominal/Gastrointestinal: No Symptoms Genitourinary Symptoms: No Symptoms Musculoskeletal: No Symptoms Skin: No Symptoms Neurological: No Symptoms Psychological: Anxiety Endocrine: No Symptoms Hematologic/Lymphatic: No Symptoms Immunological/Allergic: No Symptoms - Past Medical History Pertinent Past Medical History: Yes Neurological History: No Pertinent History ENT History: No Pertinent History Cardiac History: No Pertinent History Respiratory History: No Pertinent History Endocrine Medical History: No Pertinent History Musculoskeletal History: Fractures GI Medical History: No Pertinent History History: No Pertinent History Psycho-Social History: Attention Deficit Disorder Male Reproductive Disorders: No Pertinent History Other Medical History: fx toe and nose - Past Surgical History Past Surgical History: Yes Neuro Surgical History: No Pertinent History Cardiac: No Pertinent History Respiratory: No Pertinent History Gastrointestinal: Hernia Repair Genitourinary: No Pertinent History Musculoskeletal: No Pertinent History Male Surgical History: No Pertinent History Other Surgical History: tubes in ears, oral surgery - Social History Smoking Status: Current every day smoker How long have you smoked: 12 years Exposure to second hand smoke: Yes Drug Use: none Patient Lives Alone: No - Nursing Vital Signs Nursing Vital Signs: Initial Vital Signs Temperature 98.5 F 04/23/23 23:42 Pulse Rate 95 H 10/15/23 23:42 Respiratory Rate 17 04/23/23 23:42 Blood Pressure 130/93 04/23/23 23:42 O2 Sat by Pulse Oximetry 98 04/23/23 23:42 Pain Scale Pain Intensity 0 - Physical Exam General Appearance: no apparent distress, alert, anxiety Eye Exam: PERRL/EOMI Ears, Nose, Throat Exam: normal ENT inspection Neck Exam: normal inspection, non-tender, supple, full range of motion Respiratory Exam: normal breath sounds, lungs clear Cardiovascular Exam: regular rate/rhythm, normal heart sounds Gastrointestinal/Abdomen Exam: soft, normal bowel sounds, No tenderness Back Exam: normal inspection Extremity Exam: normal inspection, normal range of motion Neurologic Exam: alert, oriented x 3, cooperative, supply chain manager II-XII nml as tested, sen sation nml, motor deficits, No normal mood/affect Skin Exam: normal color SpO2 Interpretation: normal SpO2: 98 O2 Delivery: Room Air - Course EKG Interpreted by Me: RATE, Sinus Rhythm, NORMAL AXIS, NORMAL INTERVALS, Q- wave, Non-specific ST Changes Ordered Tests: Active Orders 24 hr Category Date Time Status Night Warehouse Manager STAT Care 04/23/23 23:40 Completed EKG-ER Only STAT Care 04/23/23 23:40 Completed IV Insertion STAT Care 04/23/23 23:40 Completed CHEST 1 VIEW (PORTABLE) Stat Exams 04/23/23 23:40 Completed CBC W DIFF Stat Lab 04/23/23 23:48 Completed CMP Stat Lab 04/23/23 23:48 Completed D-DIMER QUANTITATIVE Stat Lab 04/23/23 23:48 Completed NT PRO BNPII Stat Lab 04/23/23 23:48 Completed TROPONIN Q4H Lab 04/23/23 23:48 Completed TROPONIN Q4H Lab 04/24/23 02:39 Completed Urine Triage Profile Stat Lab 04/23/23 23:48 Completed Medication Summary Discontinued Medications Generic Name Dose Route Start Last Admin Trade Name Freq PRN Reason Stop Dose Admin Aspirin 324 mg 04/23/23 23:40 04/23/23 23:55 Aspirin 81 Mg Tab.Chew PO 04/23/23 23:41 324 mg STAT ONE Administration Aspirin Confirm 04/23/23 23:54 Aspirin 81 Mg Tab.Chew Administered 04/23/23 23:55 Dose 324 mg .ROUTE .STK-MED ONE Morphine Sulfate 4 mg 10/15/23 23:40 04/24/23 00:30 Morphine Sulfate 4 Mg/Ml Injection IV 04/23/23 23:41 Not Given STAT ONE Ondansetron HCl 4 mg 04/23/23 23:40 04/24/23 00:30 Ondansetron Hcl 4 Mg/2 Ml Vial IV 04/23/23 23:41 4 mg STAT ONE Administration Ondansetron HCl Confirm 04/24/23 00:29 Ondansetron Hcl 4 Mg/2 Ml Vial Administered 04/24/23 00:30 Dose 4 mg .ROUTE .K-MED ONE Lab/Rad Data: Laboratory Result Diagrams 04/23/23 23:48 04/23/23 23:48 Laboratory Results 04/24/23 04/23/23 04/23/23 Range/Units 02:39 23:48 23:48 WBC (4.0-10.5) x10^3/uL RBC (4.1-5.6) x10^6/uL Hgb (12.5-18.0) g/dL Hct (42-50) % MCV (78-100) fL MCH (26-32) pg MCHC (32-36) g/dL RDW (11.5-14.0) % Plt Count (150-450) x10^3/uL MPV (7.5-11.0) fL Gran % (36.0-66.0) % Immature Gran % (Auto) (0.00-0.4) % Nucleat RBC Rel Count (0.00-0.1) % Eos # (Auto) (0-0.5) x10^3/uL Immature Gran # (Auto) (0.00-0.03) x10^3u/L Absolute Lymphs (auto) (1.0-4.6) x10^3/uL Absolute Monos (auto) (0.0-1.3) x10^3/uL Absolute Nucleated RBC (0.00-0.01) x10^3u/L Lymphocytes % (24.0-44.0) % Monocytes % (0.0-12.0) % Eosinophils % (0.00-5.0) % Basophils % (0.0-0.4) % Absolute Granulocytes (1.4-6.9) x10^3/uL Basophils # (0-0.4) x10^3/uL D-Dimer 0.19 (0.0-0.50) mg/L Sodium (137-145) mmol/L Potassium (3.5-5.1) mmol/L Chloride (98-107) mmol/L Carbon Dioxide (22-30) mmol/L Anion Gap (5-15) MEQ/L BUN (9-20) mg/dL Creatinine (0.66-1.25) mg/dL Estimated GFR ML/MIN Glucose (74-106) mg/dL Calcium (8.4-10.2) mg/dL Total Bilirubin (0.2-1.3) mg/dL AST (17-59) U/L ALT (0-50) U/L Alkaline Phosphatase (38-126) U/L Troponin I < 0.012 < 0.012 (0.000-0.034) ng/mL NT-Pro-B Natriuret Pep < 20.0 (<300) pg/mL Serum Total Protein (6.3-8.2) g/dL Albumin (3.5-5.0) g/dL Urine Opiates Level (NEGATIVE) Ur Methadone (NEGATIVE) Urine Barbiturates (NEGATIVE) Ur Phencyclidine (PCP) (NEGATIVE) Urine Amphetamine (NEGATIVE) U Benzodiazepine Level (NEGATIVE) Urine Cocaine (NEGATIVE) Urine Marijuana (THC) (NEGATIVE) 04/23/23 04/23/23 04/23/23 Range/Units 23:48 23:48 23:48 WBC 10.0 (4.0-10.5) x10^3/uL RBC 5.40 (4.1-5.6) x10^6/uL Hgb 16.7 (12.5-18.0) g/dL Hct 48.8 (42-50) % MCV 90.4 (78-100) fL MCH 30.9 (26-32) pg MCHC 34.2 (32-36) g/dL RDW 12.1 (11.5-14.0) % Plt Count 201 (150-450) x10^3/uL MPV 10.1 (7.5-11.0) fL Gran % 60.7 (36.0-66.0) % Immature Gran % (Auto) 0.2 (0.00-0.4) % Nucleat RBC Rel Count 0.0 (0.00-0.1) % Eos # (Auto) 0.14 (0-0.5) x10^3/uL Immature Gran # (Auto) 0.02 (0.00-0.03) x10^3u/L Absolute Lymphs (auto) 2.90 (1.0-4.6) x10^3/uL Absolute Monos (auto) 0.80 (0.0-1.3) x10^3/uL Absolute Nucleated RBC 0.00 (0.00-0.01) x10^3u/L Lymphocytes % 29.1 (24.0-44.0) % Monocytes % 8.0 (0.0-12.0) % Eosinophils % 1.4 (0.00-5.0) % Basophils % 0.6 (0.0-0.4) % Absolute Granulocytes 6.04 (1.4-6.9) x10^3/uL Basophils # 0.06 (0-0.4) x10^3/uL D-Dimer (0.0-0.50) mg/L Sodium 139 (137-145) mmol/L Potassium 3.7 (3.5-5.1) mmol/L Chloride 107 (98-107) mmol/L Carbon Dioxide 28 (22-30) mmol/L Anion Gap 8.2 (5-15) MEQ/L BUN 19 (9-20) mg/dL Creatinine 0.92 (0.66-1.25) mg/dL Estimated GFR > 60.0 ML/MIN Glucose 116 H (74-106) mg/dL Calcium 8.8 (8.4-10.2) mg/dL Total Bilirubin 0.30 (0.2-1.3) mg/dL AST 29 (17-59) U/L ALT 29 (0-50) U/L Alkaline Phosphatase 59 (38-126) U/L Troponin I (0.000-0.034) ng/mL NT-Pro-B Natriuret Pep (<300) pg/mL Serum Total Protein 6.5 (6.3-8.2) g/dL Albumin 4.1 (3.5-5.0) g/dL Urine Opiates Level NEGATIVE (NEGATIVE) Ur Methadone NEGATIVE (NEGATIVE) Urine Barbiturates NEGATIVE (NEGATIVE) Ur Phencyclidine (PCP) NEGATIVE (NEGATIVE) Urine Amphetamine NEGATIVE (NEGATIVE) U Benzodiazepine Level NEGATIVE (NEGATIVE) Urine Cocaine NEGATIVE (NEGATIVE) Urine Marijuana (THC) NEGATIVE (NEGATIVE) - Progress Progress: improved, re-examined Air Movement: good Progress Note: 04/23/23 23:47 32 years old male with history of anxiety presented to the ER with chief complaint of sudden onset chest pain around 10:20 PM while he was driving. Patient reported he has been going through a lot of stress lately and has been having off-and-on chest pains this week. Reports severe chest pain earlier on the left side with some radiation to the neck and jaw area but improved on its own and currently moderate intensity pain without any difficulty breathing, cough fever or chills. No history of coronary artery disease in the past. Does report smoking marijuana and tobacco. 04/24/23 00:30 Patient is very anxious, EKG is normal sinus with no acute ST elevations. Is given aspirin. Initial troponins are negative. Negative D-dimer. Chest x-ray negative for any acute cardiopulmonary findings reviewed by me, official report is pending. Patient is feeling better on reevaluation and much more calm down. I believe part of patient's symptoms are secondary to anxiety as well. Later on patient reported that he took a Percocet from the street and took it earlier today. He is advised not to take any medication which she is not prescribed. Although his urine drug screen is negative. It might not be Percocet but some other synthetic which is causing his symptoms. I will obtain second troponin and if negative patient will be discharged with outpatient follow-up. Discussed signs symptoms of worsening needing return to ER which she seems understanding. 04/24/23 03:42 Has negative second troponin, patient remained pain-free. Stable for discharge with outpatient follow-up. Blood Culture(s) Obtained: No Antibiotics given: No Counseled pt/family regarding: lab results, diagnosis, need for follow-up, rad results, smoking cessation - Departure Departure Disposition: Home Clinical Impression: Atypical chest pain, Anxiety Condition: Stable Critical Care Time: No Referrals: DENICE CUTLER [Primary Care Provider] - Follow up/PCP as directed Instructions: Anxiety, Adult (DC), Angina (DC) Additional Instructions: Take Tylenol/ibuprofen as needed for pain. Follow-up with primary care for reevaluation. Return to ER for intractable chest pain, difficulty breathing etc. Forms: Work/School Release Form
[2023-04-24 00:04] LABS: ALBUMIN 4.1 g/dL (3.5-5.0); ALKALINE PHOSPHATASE 59 U/L (38-126); ANION GAP 8.2 MEQ/L (5-15); BLOOD UREA NITROGEN 19 mg/dL (9-20); CHLORIDE 107 mmol/L (98-107); Calcium 8.8 mg/dL (8.4-10.2); Carbon Dioxide 28 mmol/L (22-30); Creatinine 1 0.92 mg/dL (0.66-1.25); EST GLOMERULAR FILTRATION RATE > 60.0 ML/MIN; Glucose 116 mg/dL (74-106); Potassium 3.7 mmol/L (3.5-5.1); SGOT/AST 29 U/L (17-59); SGPT/ALT 29 U/L (0-50); SODIUM 139 mmol/L (137-145); Total Protein 6.5 g/dL (6.3-8.2)
[2023-04-24 00:09] VITALS: TEMP 98.5
[2023-04-24 00:15] LABS: NT PRO BNPII < 20.0 pg/mL (<300); TROPONIN < 0.012 ng/mL (0.000-0.034)
[2023-04-24 00:16] LABS: Amphetamine,Urine NEGATIVE (NEGATIVE); Barbiturate,Urine NEGATIVE (NEGATIVE); Benzodiazepine,Urine NEGATIVE (NEGATIVE); Cocaine,Urine NEGATIVE (NEGATIVE); Methadone,Urine NEGATIVE (NEGATIVE); Opiate,Urine NEGATIVE (NEGATIVE); PCP,Urine NEGATIVE (NEGATIVE); THC,Urine NEGATIVE (NEGATIVE)
[2023-04-24] MEDS ORDERED: Zofran 4 MG/2 ML VIAL ONE (00:29)
[2023-04-24 00:32] VITALS: O2SAT 98
[2023-04-24 03:04] VITALS: BP 102/71; PULSE 64; RESP 19
--- NOTE | 2023-04-24 08:45 | XRAY ---
Indication: Chest pain. Comparison: February 17, 2021 Portable chest again demonstrates normal heart, lungs, and bony thorax.
== END 2023-04-24 03:35 | disposition home or self-care (01) ==
LOC: ED 23:26
DX: R07.89 Other chest pain (principal); F41.9 Anxiety disorder, unspecified; Z28.310 Unvaccinated for COVID-19; Z72.0 Tobacco use
CPT/HCPCS: 36000; 36415; 71045; 80053; 80307; 83880; 84484; 85025; 85379; 93005; 93041; 96374; 99284; J2405; A9270-GY